=== PATIENT | female | born 1955 | race Caucasian/White ===

== ENCOUNTER 2025-04-03 08:33 | Outpatient (CLI) | payer MEDICARE, OTHER, SELFPAY ==
--- NOTE | ~2025-04-03 | CT_ITS ---
Procedure: CT LE RT wo con Ordering provider: Santosh Agosto MD History: . Preoperative Planning . Comparison: None. Technique: Thin slice axial CT of the No IV contrast was given. Sagittal and coronal reformatted imag es were also obtained and reviewed. The dose-length product was 1558.80 mGy-cm. Findings: BONES: No fracture or dislocation. JOINT SPACES: Severe narrowing of the medial compartment with marginal osteophytes and spiking of the tibial spines. Marginal osteophytes in the patella with some articular cystic changes. The right ank le and right hip are unremarkable. SOFT TISSUES: Edema in the lateral aspect of the distal right lower extremity. Minimal knee joint eff usion. Minimal edema anterior to the patellar tendon IMPRESSION: No fracture or dislocation. Severe osteoarthritic changes of the right knee. Reviewed, dictated and finalized at location A.
--- OUTSIDE RECORDS SUMMARY | 2025-04-03 08:55 | XMS_ITS | Clinical Summary ---
Author Organization [facility] Address [address] [place] [address] Care Team Providers Care Certified Activities Director Name Role Phone Unavailable Primary Care Provider Unavailabl e Source Comments [facility],non-owned Affiliates and Associated Physician Practices is amultiple site organization consisting of ambulatory clinics and hospital sitesin [place], [place], [place] and [place]. This disclosure is being madepursuant to the Care Everywhere program and may not contain all information available regarding this patient. 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 Gender Identity Not on file Sexual Orientation Not on file Plan of Treatment Health Maintenance Due Date Last Done Comments BONE DENSITY TESTING 1955 COLOGUARD (AGES 45-75) - COL ON CA SCREENING 1953 COLON MONITORING 1953 COLONOSCOPY - COLON CA SCREENING 1953 CT COLONOGRAPHY - COLON CA SCREENING 1953 Colorectal Cancer Screening 1953 FIT - COLON CA SCREENING 1953 FLEX SIG - COLON CA SCREENING 1953 LIPID TESTING 1953 MAMMOGRAM 1953 HEPATITIS C SCREENING 11/07/1971 DTAP/TDAP/TD VACCINES (1 - Tdap) 1972 PNEUMOCOCCAL VACCINE 50+ (1 of 1 - PCV) 2003 ZOSTER VACCINE (1 of 2) 2003 COVID-19 VACCINE ( - 2023-2 5 season) 2024 DEPRESSION SCREENING 11/29/2024 INFLUENZA VACCINE (Season Ended) 2025 Respiratory Syncytial Virus (RSV) Vaccine Pt: or over 60 yrs (1 - 1-dose 75+ series) 2028 HEPATITIS B VACCINE Aged Out No longe r eligible based on patient's age to complete this topic HIB VACCINE Aged Out No longer eligi ble based on patient's age to complete this topic HPV VACCINE Aged Out No longer eligi ble based on patient's age to complete this topic MENINGOCOCCAL (Group B) VACC INE SHARED DECISION-MAKING Aged Out No longer eligibl e based on patient's age to complete this topic MENINGOCOCCAL GROUPS A/C/Y/W VACCINE Aged Out No longer eligible b ased on patient's age to complete [place] [address] [employer]
--- OUTSIDE RECORDS SUMMARY | 2025-04-03 08:55 | XMS_ITS | Clinical Summary ---
Author Organization [facility] Address [address], [facility] [address] [place] [address] Phone Care Team Providers Care Splicer Operator Name Role Phone Bib Summers MD Primary Care Provider [phone] Calixto Alvarez MD Unavailable [phone] Allergies Active Allergy Reactions Criticality Noted Date Comments Sulfa Antibiotics Rash 06/21/2018 Medications aspirin EC 81 MG Tablet Delayed Response Take 81 mg by mouth three times a week. Active methotrexate 2.5 MG Tablet Take 5 mg by mouth twice a week. Active Misc Natural Products (OSTEO BI-FLEX JOINT SHIELD PO) Take 1 Tab by mouth daily. Active Multiple Vitamins-Minera ls (CENTRUM SILVER PO) Take 1 Tab by mouth daily. Active ONDANSETRON PO Take by mouth. Active Valsartan (DIOVAN PO) Take 1 Tab by mouth daily. Active folic acid (FOLVITE) 1 MG Tablet Take 1 mg by mouth daily. Active potassium chloride SA (KLORCON M) 10 MEQ Tablet Controlled Release Take 10 mEq by mouth daily. Active Probiotic Product (Nest Labs PO) Take 1 Tab by mouth daily. Active omeprazole (PRILOSEC) 40 MG CAPSULE DELAYED RELEASE Take 1 Cap by mouth daily. 90 Cap 3 8 Active Additional Information Patient not taking.Reported on 04/19/2024 ibuprofen (MOTRIN) 800 MG Tablet Take 1 Tablet by mouth every 8 hours. 270 Tablet 3 1 Active esomeprazole (NexIUM) 20 MG CAPSULE DELAYED RELEASEIndicati ons:Nodule of left lung,Rheumatoid arthritis in remission (HCC),Dyspnea on exertion Take 20 mg by mouth daily. Active Active Problems Problem Noted Date Diagnosed Date Nodule of left lung 04/19/2024 Rheumatoid arthritis in remission 04/19/2024 Dyspnea on exertion 04/19/2024 Immunizations Immunization Administration Dates Next Due Influenza, high-dose, trivalent, PF 08/02/2024 Family History Medical History Relation Name Comments Congestive Heart Failure Brother Diabetes Brother Congestive Heart Failure Father Dementia Father Diabetes Father Aneurysm Mother Coronary Artery Disease Mother Hypertension Mother Relation Name Status Comments Brother Father Alive Mother Social History Tobacco Use Types Packs/Day Years Used Date Smoking Tobacco: Never Smokeless Tobacco: Never Tobacco Cessation:Counseling Given: Not Answered Alcohol Use Standard Drinks/Week Comments Not Currently 0 (1 standard drink = 0.6 oz pur e alcohol) socially Comments No Sex and Gender Information Value Date Recorded Sex Assigned at Not on file Legal Sex Female 9:37 PM CDT Gender Identity Not on file Sexual Orientation Not on file 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 Not on file Not on file Last Filed Vital Signs Vital Sign Reading Time Taken Comments Blood Pressure 162/91 04/19/2024 9:23 AM CDT Pulse 80 04/19/2024 9:23 AM CDT Temperature 36.4 C (97.6 F) 04/19/2024 9:23 AM CDT Respiratory Rate 16 04/19/2024 9:23 AM CDT Oxygen Saturation 98% 04/19/2024 9:23 AM CDT Inhaled Oxygen Concentration - - Weight 94.6 kg (208 lb 9.6 oz) 04/19/2024 9:23 A M CDT Height 165.1 cm (5' 5 ) 04/19/2024 9:23 AM CDT Body Mass Index 34.71 04/19/2024 9:23 AM CDT Plan of Treatment Health Maintenance Due Date Last Done Comments Hepatitis C Virus (HCV) Screening 1953 Cologuard 2003 Immunochemical Fecal Occult Blood 2003 Respiratory Syncytial Virus (RSV) Immunization (Adult) (1 - Risk 60-74 years 1-dose series) 2013 DEXA Bone Density 06/18/2017 06/18/2015 SARS-COV-2 Immunization (3 - 2024-25 season) 2024 09/29/2021, 02/08/2021 Mammogram 05/06/2025 05/06/2024, 01/2022, 08/18/2021, Additional history exists Colonoscopy 05/18/2034 05/18/2024, 04/2018, 09/05/2012 Colorectal Cancer Screening 05/18/2034 05/18/2024, 04/2018, 09/05/2012 Pneumococcal Immunization (50+ years) Completed 08/11/2020, 08/11/2020, 06/14/2019 Pneumococcal Immunization Combined Discontinued 08/11/2020, 08/11/2020, 06/14/2019 Zoster Immunization Completed 05/07/2022, DTaP/Tdap/Td Immunization Discontinued 2021, 01/19/2011, 11/29/2010 TdaP Immunization Completed 09/02/2022, 01/19/2011 Influenza Immunization Completed 4, 09/05/2023, 09/02/2023, Additional history exists Hepatitis B Immunization Aged Out No longer eligible based on patient's age to complete this topic Human Papillomavirus (HPV) Immunization Aged Out No longer eligible based on patient's age to complete this topic Meningococcal Immunization (ACWY) Aged Out No longer eligible based on patient's age to complete this topic Rotavirus Immunization Aged Out No lo nger eligible based on patient's age to complete this topic Procedures Procedure Name Priority Date/Time Associated Diagnosis Comments RICKY SCREENING BILATERAL DIGITAL W CAD W PRESLEY Routine 10/01/2022 3:42 PM CDT Encounter for screening mammogram for malignant neoplasm of breast HM COLONOSCOPY Routine 09/05/2012 from Last 3 Months or Most Recently Relevant to Health Maintenance Results * RICKY SCREENING BILATERAL DIGITAL W CAD W PRESLEY (10/01/2022 3:42 PM CDT) Anatomical Region Laterality Modality breast Bilateral Mammography 10/01/2022 3:11 PM CDT Narrative 10/05/2022 9:56 AM ICE CREAM SHOP ASSOCIATE - RICKY SCREENING BILATERAL DIGITAL W CAD W PRESLEY BILATERAL DIGITAL SCREENING MAMMOGRAM 3D/2D WITH CAD WITH MEDIOLATERAL OBLIQUE CRANIOCAUDAL: 10/01/2022 The study was acquired using digital technology and interpreted from soft copy. Current study was also evaluated with ICAD version 7.2. 2D digital mammographic views, as well as 3D digital tomosynthesis were performed in the CC and MLO projections. CLINICAL: Routine screening. Patient has no complaints. No personal history of cancer. No family history of breast cancer. COMPARISONS: Comparison is made to exams dated: 08/18/2021, 07/02/2020 [facility], and 04/05/2019 [facility]. BREAST TISSUE:The tissue of both breasts is predominantly fatty. FINDINGS: There is a benign intramammary node in the left breast. No significant masses, calcifications, or other findings are seen in either breast. There has been no significant interval change. IMPRESSION: BI-RAD 2 BENIGN There is no mammographic evidence of malignancy. A 1 year screening mammogram is recommended. A letter will be sent to the patient with these results. The patient will be entered into a reminder system with a target due date of 1 year for her next screening exam. Electronically signed by: Akila cherry/michelle:10/02/2022 15:13:28 Memorial Counselor(s): RT Pantera(R)(M), [facility] letter sent: Normal Exam Reading location: [facility] BI-RADS: 2 Benign Procedure Note Akila Hernandez MD - 10/05/2022 - RICKY SCREENING BILATERAL DIGITAL W CAD W PRESLEY BILATERAL DIGITAL SCREENING MAMMOGRAM 3D/2D WITH CAD WITH MEDIOLATERAL OBLIQUE CRANIOCAUDAL: 10/01/2022 The study was acquired using digital technology and interpreted from soft copy. Current study was also evaluated with ICAD version 7.2. 2D digital mammographic views, as well as 3D digital tomosynthesis were performed in the CC and MLO projections. CLINICAL: Routine screening. Patient has no complaints. No personal history of cancer. No family history of breast cancer. COMPARISONS: Comparison is made to exams dated: 08/18/2021, 07/02/2020 [facility], and 04/05/2019 [facility]. BREAST TISSUE:The tissue of both breasts is predominantly fatty. FINDINGS: There is a benign intramammary node in the left breast. No significant masses, calcifications, or other findings are seen in either breast. There has been no significant interval change. IMPRESSION: BI-RAD 2 BENIGN There is no mammographic evidence of malignancy. A 1 year screening mammogram is recommended. A letter will be sent to the patient with these results. The patient will be entered into a reminder system with a target due date of 1 year for her next screening exam. Electronically signed by: Akila cherry/michelle:10/02/2022 15:13:28 Memorial Counselor(s): RT Pantera(R)(M), [facility] letter sent: Normal Exam Reading location: [facility] BI-RADS: 2 Benign us Bib Summers MD IMG MAMMO ORDERABLES Final Result * HM COLONOSCOPY (09/05/2012) us Victor M Castillo DO PROCEDURE/MINOR SURGICAL ORDERA BLES Final Result from Last 3 Months or Most Recently Relevant to Health Maintenance Insurance MEDICARE [employer] MEDICARE SUP Care Teams Splicer Operator Relationship Specialty Start Date End Date Bib Summers MD [address] [place] [address] PCP - General Internal Medicine 03/16/18 Calixto Alvarez MD [address] [place] [id number] Consulting Physician Medical Oncology 04/19/24
--- OUTSIDE RECORDS SUMMARY | 2025-04-03 08:55 | XMS_ITS | Encounter Summary ---
Author Organization [facility] Address [address] [place] [address] Phone Care Team Providers Care Pr Manager Name Role Phone Bib Summers MD Primary Care Provider [phone] Calixto Alvarez MD Unavailable Encounter Details Date Type Department Care Team (Late st Contact Info) Description 04/21/2024 Telephone [facility] Oncology Services [address] [place] [id number] Calixto Alvarez MD [address] [place] [address] Social History Tobacco Use Types Packs/Day Years Used Date Smoking Tobacco: Never Smokeless Tobacco: Never Alcohol Use Standard Drinks/Week Comments Not Currently 0 (1 standard drink = 0.6 oz pur e alcohol) socially Comments No Sex and Gender Information Value Date Recorded Sex Assigned at Not on file Legal Sex Female 9:37 PM CDT Gender Identity Not on file Sexual Orientation Not on file 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 This nodule is quite peripheral and not accessible via bronchoscopy. [facility] does not have navigational bronchoscopy. Have discussed with IR, this nodule is accessible via CT-guided biopsy. Patient requested this to be done at [facility]. Contacted patient's primary care physician Dr. Summers to request him to order the biopsy of the lung at [facility]. * Telephone Encounter - Jeana Emery - 04/21/2024 9:13 AM CDT The patient called to follow up on next steps after the completion of her PET scan on 04/12/24. She states she would like to discuss what is to be expected in regards to a having a PFT or lung bx. Patient requesting a touch base telephone call to map out the most effective steps in her care. [phone]. documented in this encounter Plan of Treatment Not on file documented as of this encounter Visit Diagnoses Not on filedocumented in this encounter Care Teams Pr Manager Relationship Specialty Start Date End Date Bib Summers MD [address] [address] PCP - General Internal Medicine 03/16/18 Calixto Alvarez MD [address] [facility] [place] [address] Consulting Physician Medical Oncology 04/19/24 documented as of this encounter
--- OUTSIDE RECORDS SUMMARY | 2025-04-03 08:56 | XMS_ITS | Clinical Summary ---
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
--- OUTSIDE RECORDS SUMMARY | 2025-04-03 08:56 | XMS_ITS | Encounter Summary ---
Author Organization [facility] Address [address] [place] [address] Phone Care Team Providers Care Ip/Mosaic Technician Name Role Phone Kristopher, Bib Lira MD Primary Care Provider [phone]- [phone] Donald Garnica MD Unavailable [phone] Victor M Castillo DO Unavailable [phone] Marquita Daniel MD Unavailable [phone] Jenna Barrera MD Unavailable [phone] Encounter Details Date Type Department Care Team (Late st Contact Info) Description 10/01/2022 Orders Only [facility] [address] [place] [address] Scanning, Provider Social History Tobacco Use Types Packs/Day Years Used Date Smoking Tobacco: Never Smokeless Tobacco: Never Alcohol Use Standard Drinks/Week Comments Yes 0 (1 standard drink = 0.6 oz pur e alcohol) AUDIT-C Answer Date Recorded Q1: How often do you have a drink containing alc ohol? 2-4 times a month 09/30/2022 Q2: How many drinks containi ng alcohol do you have on a typical day when you are drinking? 1 or 2 09/30/2022 Frequency of Binge Drinking Not on file 12/2021 PHQ-2 Answer Date Recorded PHQ-2 Total Score (If total score is 3 or more points, staff should administer the PHQ-9) 0 09/01/2022 Comments No Sex and Gender Information Value Date Recorded Sex Assigned at Not on file Legal Sex Female 11:31 AM SKIN TOGGLER Gender Identity Not on file Sexual Orientation Not on file documented as of this encounter Plan of Treatment Not on file documented as of this encounter Procedures Procedure Name Priority Date/Time Associated Diagnosis Comments SCAN - RADIOLOGY/IMAGING 10/01/2022 documented in this encounter Results * SCAN - RADIOLOGY/IMAGING (10/01/2022) Anatomical Region Laterality Modality Other us Provider Scanning Final Result documented in this encounter Visit Diagnoses Not on filedocumented in this encounter Care Teams Ip/Mosaic Technician Relationship Specialty Start Date End Date Bib Summers MD [address] [place] [address] PCP - General 02/26/17 Donald Garnica MD [address] [place] [address] Director Of Billing Obstetrics and Gynecology 02/24/18 Victor M Castillo DO [address] [place] [address] Consulting Physician Gastroenterology 02/24/18 Marquita Daniel MD [address] [place] [address] Referring Physician Rheumatology 02/24/18 Jenna Barrera MD [address] [place], [place] [id number] Consulting Physician Critical Care Med 02/25/21 documented as of this encounter
--- OUTSIDE RECORDS SUMMARY | 2025-04-03 08:56 | XMS_ITS | Clinical Summary ---
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 Name Role Phone KristopherBib MD Primary Care Provider [phone] Donald Garnica MD Unavailable [phone] Victor M Castillo DO Unavailable [phone] Marquita Daniel MD Unavailable [phone] Jenna Barrera MD Unavailable [phone] Allergies Active Allergy Reactions Criticality Noted Date Comments Lisinopril Cough Low 06/19/2019 Sulfa (Sulfonamide Antibiotics) Rash Medium 05/30 Sulfasalazine Rash Medium 06/21/2018 Medications calcium carbonate (CALCIUM 600) 1,500 mg (600 mg of elemental calcium) tablet ONE DAILY 0 10/27/20 11 Active 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 [id number] (CENTRUM SILVER ULTRA WOMEN'S) tablet ONE DAILY 0 10/27/20 11 Active glucosamine-D3 -Boswellia serr (OSTEO BI-FLEX, 5-LOXIN,) 1,500-400-100 mg-unit-mg tablet once daily 0 12/08/[address] (NexIUM) 20 mg packet Take 20 mg by mouth daily as needed Active golimumab (SIMPONI ARIA) 12.5 mg/mL solutionIndica tions:Rheumato id Arthritis every 8 (eight) weeks Active furosemide (LASIX) 20 mg tablet Take 1 tablet (20 mg total) by mouth daily 90 tablet 3 09/10/20 23 Active Additional Information Patient taking differently:20 mg oral Daily,Takes prn, Reported on 04/02/2025 losartan (COZAAR) 50 mg tablet Take 1 tablet (50 mg total) by mouth daily 90 tablet 3 09/11/20 24 Active meloxicam (MOBIC) 7.5 mg tabletIndicati ons:Osteoarthr itis,Rheumatoi d Arthritis Take 1 po every day 90 tablet 3 09/11/20 24 Active ibuprofen (ADVIL,MOTRIN) 800 mg tablet Take 1 tablet (800 mg total) by mouth 3 (three) times a day as needed 12/14/19 25 Active potassium chloride ER (KLOR-CON) 10 mEq CR tablet Take 1 tablet by mouth once daily 90 tablet 03/13/20 25 Active albuterol HFA (Proventil HFA) 90 mcg/actuation inhaler Inhale 2 puffs every 4 (four) hours as needed for wheezing or shortness of breath 3 each 1 03/24/20 24 025 Discontinued methotrexate 2.5 mg tabletIndicati ons:autoimmune disease Take 2 tablets (5 mg total) by mouth every 7 days 24 tablet 1 07/11/20 24 025 Discontinued folic acid (FOLVITE) 1 mg tablet Take 2 tablets by mouth once daily 180 tablet 09/12/20 24 025 Discontinued potassium chloride ER 10 mEq CR tablet Take 1 tablet/capsule (10 mEq total) by mouth daily 90 tablet 12/14/19 25 025 Discontinued Active Problems Problem Noted Date Diagnosed Date Left upper lobe pulmonary nodule 05/11/2024 Abnormal computed tomography angiography (CTA) of abdomen and pelvis 05/03/2024 Malignant neoplasm of lung 05/03/2024 Abnormal findings on diagnos tic imaging of other parts of digestive tract 05/03/[address] of the chest 04/07/2024 Assessment & Plan (04/07/2024 6:56 PM CDT): I reviewed th ct of the chest with the patient she understands Will arrange PET scan for abnormal ct of the chest at [facility] Also I referred her to dr rodríguez as a f/u For her coronary calcification will refer her to cardiology for further work up MUNGUIA (dyspnea on exertion) 03/24/2024 Assessment & Plan (04/02/2025 6:32 PM CDT): WITH INITIALLY AN 2 D ECHO NEG NL EWF CXR WITH LUNG LESION S/P CT OF THE CHEST WITH NEG BIOPSY Assessment & Plan (03/24/2024 6:46 PM CDT): Patient thinks its secondarily to her weight that has gone up / she denies any chest pain she does has a f/h of heart disease, discussed start with a cxr today /The current medical regimen is effective; continue present plan and medications. Inhalers but use it timely if neg will arrange a 2 d echo to look at LVEF plus heart valves this was discussed with the patient Chronic kidney disease (CKD) stage G2/A1, mildly decreased glomerular filtration rate (GFR) between 60-89 mL/min/1.73 square meter and albuminuria creatinine ratio less than 30 mg/g 03/22/2024 Encounter for Medicare annual wellness exam 08/29 Assessment & Plan (09/12/2024 8:03 AM CDT): 1, immunizations were reviewed 2. Eye exam and dental uptodate 3. Mammogram and colonscopy uptodate . 4. Essential HTN goal bp is 130/80 or under 5. Seronegative RA follow up with rheumatology 6./abnormal ct of the chest with a neg biopsy for malignant rpt ct showing stability of the lung nodule . High risk medication use 09/15/2023 Cough 07/09/2022 Assessment & Plan (07/09/2022 1:41 PM CDT): See plan for URI above. Upper respiratory tract infection 07/09/2022 Assessment & Plan (07/09/2022 1:45 PM CDT): Presents c/o non-productive cough, indigestion, and epigastric pain/pressure. Slight wheezing noted on exam. Tested negative for COVID/Flu in office today. Discussed with patient bronchitis with a complicating factor of GERD.Will order CXR to r/o acute cardiopulmonary process. Rxd Tessalon perles as needed for cough and good hydration. Educated on low acid diet. Continue Nexium daily. Keep follow up with Dr. Cruz in August or call sooner if needed. Seronegative rheumatoid arthritis 10/01/2018 Assessment & Plan (04/02/2025 6:32 PM CDT): CHRONIC AND STABLE ON SIMPONI EVERY 8 WEEKS Assessment & Plan (03/10/2023 12:58 PM CDT): Recent increase in pain levels may represent interchangeable subcu in IV Simponi but will await response to her infusion today. Monitoring laboratories are obtained and will plan to continue her current regimen Simponi plus methotrexate unless this is a persistent issue. Assessment & Plan (07/24/2020 1:37 PM CDT): Clinically she is doing well on her current regimen of Simponi plus methotrexate. Monitoring laboratories are ordered today. We will arrange for her to have infusions in [place] and right orders if we are not able to arrange for subcutaneous Simponi. She will follow up with me in 6 months. Assessment & Plan (02/07/2020 1:02 PM CDT): Clinically she does have some increased symptoms but she is at the arvind of her therapy. Would like to see her back after she has completed 2 infusions. She does not feel that she needs additional therapy at this time for pain control. We will check monitoring laboratories on her methotrexate which is 7.5 mg weekly. She will follow up with me in 4 months. We discussed risk of baker virus given her current regimen in the importance of continuing regular therapy. 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 We discussed the need to hold any subcutaneous injections if she developed an infection and I outlined that her for subcutaneous injection will be given at a 6 week interval from her last IV infusion and she will then take it every 4 weeks with a 4 week interval before she begins her maintenance IV infusions. We will obtain monitoring laboratories today on her IV Simponi. Assessment & Plan (08/23/2019 5:45 PM CDT): We had a lengthy discussion about options of care given her issues with MTX and hydroxychloroquine as well as it is not been effective and her radiographs demonstrating progressive disease. I recommend consideration for a TNF inhibitor and we discussed potential adverse effects of non melanoma skin cancer, increased risk of opportunistic infections, rare risk of transaminitis. We also discussed potential use of leflunomide but given her severe nausea with methotrexate she is very concerned about the GI side effects. She had a negative latent tuberculosis test 12-1/2 months ago and we will repeat this but initiate the process for IV Simponi. She will discontinue methotrexate at this time given her GI intolerance and we will check monitoring laboratories. Assessment & Plan (02/17/2019 3:49 PM CDT): She continues to have some inflammatory symptoms but has been intolerant of higher doses of methotrexate and she would prefer to avoid a biologic this time of possible. I would suggest we cross over to subcutaneous methotrexate at 0.4 mg initially to see if this is better tolerated and if it is, I would increase the dose to 0.6 after 1 month of therapy. She will continue her folic acid but if she continues to have central nervous symptoms after taking methotrexate, I would cross over to leucovorin. I had a lengthy discussion with her about preferred forms of exercise and I have strongly encouraged her to begin a graded conditioning program. Assessment & Plan (10/01/2018 7:25 AM CDT): Clinically she continues to have active disease and I recommended occupational therapy consultation to assess her hand splints. We discuss use of a biologic and she has had screening laboratories and these are all acceptable. I would recommend that we add a TNF inhibitor such as Humira to her regimen. She will be receiving new insurance within the next month and would like to have her benefits assessed with this rather than making the change at this time. She will contact us when she has her new insurance card. We will obtain monitoring laboratories today. We discussed risks and benefits of therapy including increased risk of skin cancer, opportunistic infections and less common side effects of autoimmune hepatitis or rash. YVONNE on CPAP 09/15/2018 Gastroesophageal reflux disease without esophagi tis 02/24/2018 Assessment & Plan (07/09/2022 1:47 PM CDT): Presents with cough, indigestion, and epigastric pain. Educated that cough can worsen GERD symptoms or vice versa. She feels the Nexium has been working for her, will continue daily. Educated on low acid diet. Increase water. Call with any changes/concerns. 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 Pure hypercholesterolemia 04/14/2014 Overview (03/04/2017): PURE HYPERCHOLESTEROLEM Assessment & Plan (04/02/2025 6:32 PM CDT): FLP AND LDL WERE REVIEWED GOAL LDL IS UNDER 100 Family history of ischemic heart disease 014 Overview (03/05/2017): FAM HX-ISCHEM HEART DIS Benign hypertension 04/14/2014 Overview (03/05/2017): BENIGN HYPERTENSION Generalized osteoarthritis 02/25/2011 Overview (03/06/2017): General Osteoarthrosis Resolved Problems Problem Noted Date Diagnosed Date Resolved Date Chronic kidney disease, stage III (moderate) 2 03/22/2024 Chronic kidney disease (CKD) stage G3a/A1, moderately decreased glomerular filtration rate (GFR) between 45-59 mL/min/1.73 square meter and albuminuria creatinine ratio less than 30 mg/g 03/05/2022 03/22/2024 Chronic kidney disease (CKD) stage G3b/A1, moderately decreased glomerular filtration rate (GFR) between 30-44 mL/min/1.73 square meter and albuminuria creatinine ratio less than 30 mg/g 03/05/2022 03/22/2024 Encounters Date Type Department Care Team Description 04/02/2025 11:00 AM CDT Office Visit [facility] [address] [place] [address] Bib Summers MD Pure hypercholesterolemia (Primary Dx); MUNGUIA (dyspnea on exertion); Seronegative rheumatoid arthritis (HCC) 03/29/2025 Telephone [facility] [place] [address] [place] [address] Jackelyn Jacome LPN 03/22/2025 Telephone [facility] Pulmonary at [address] [place] [address] Janelle Tellez LPN 03/21/2025 11:27 AM CDT - 03/21/2025 11:59 PM CDT Hospital Encounter [facility] Non-invasive Cardiac Diagnostic Testing [address] [place] [address] Dyspnea on exertion Discharge Disposition: Discharge to home or self care 03/20/2025 Telephone [facility] [address] [place] [address] Bib Summers MD 03/14/2025 1:29 PM CDT - 03/14/2025 11:59 PM CDT Hospital Encounter [facility] [address] [place] [address] Seronegative rheumatoid arthritis (HCC) Discharge Disposition: Discharge to home or self care 03/14/2025 11:00 AM CDT Infusion [facility] Infusion Therapy [address] [place] [id number] Seronegative rheumatoid arthritis (HCC) (Primary Dx) 03/12/2025 10:30 AM CDT Office Visit [facility] Pulmonary at [address] [place] [address] Timur Kahn MD Dyspnea on exertion (Primary Dx); Pulmonary nodule, left; Rheumatoid arthritis with negative rheumatoid factor, involving unspecified site (HCC) 01/29/2025 Telephone [facility] [address] [place] [address] [address] [place] [phone] Donald Garnica MD Diflucan pharmacy correction 01/29/2025 Telephone [facility] [address] [facility] [address] [place] [phone] 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, 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 Diflucan from Last 3 Months Immunizations Immunization Administration Dates Next Due Influenza, Quadrivalent, Hig h Dose, Preservative Free, Intrr 09/05/2023,08/31/2022,08/22/2021,08/11 Influenza, Split 09/18/2010,11/29/2009 Influenza, Trivalent, High D ose, Split, Preservative Free, Intramuscular 08/02/2024,08/11/2020,08/08/2019 Influenza, Trivalent, IM (MDV) 08/16/2012 Influenza, Trivalent, Preser vative Free, Intramuscular 08/28/2011 Influenza, Unspecified 08/02/2024,2021,08/25/2021,08/08 [employer] ([employer]) SARS-CoV-2 Vaccination 02/08/2021 Pfizer SARS-CoV-2 Monovalent Vaccination (12+ Yrs) PURPLE 09/29/2021 Pneumococcal Conjugate PCV 13 06/14/2019 Pneumococcal Conjugate, Unspecified 08/11/2020 Pneumococcal Polysaccharide PPV23 08/11/2020 TD Preservative Free 11/29/2010 Tdap 09/02/2022,01/19/2011 ZOSTER Recombinant 05/07/2022,02/20/2022 Surgical History Surgery Date Site/Laterality Comments OTHER SURGICAL HISTORY appendicitis: Appendectomy HYSTERECTOMY Hysterectomy HYSTERECTOMY 11/29/1980 - 11/28/1981 Hysterectomy KNEE ARTHROPLASTY 11/29/2008 - 11/28/2009 Knee replacement APPENDECTOMY 11/29/1969 - 11/28/1970 Appendectomy APPENDECTOMY Appendectomy OTHER SURGICAL HISTORY 11/29/1980 - 11/28/1981 Hysterectomy with partial oophorectomy KNEE ARTHROPLASTY 11/29/2007 - 11/28/2008 Left knee replacement KNEE ARTHROPLASTY L knee replacement OTHER SURGICAL HISTORY patial hysterectomy APPENDECTOMY appendectomy COLONOSCOPY 06/29/2018 - 07/29/2018 JOINT REPLACEMENT Medical History Medical History Date Comments Hx Other Medical appendicitis Arthritis Arthritis Hypertension Hypertension Hx Other Medical 2000 Degenerative ar thrits Rheumatoid arthritis (HCC) PONV (postoperative nausea and vomiting) Sleep apnea Family History Medical History Relation Name Comments Coronary artery disease Brother Lincoln nary artery disease, premature; Diabetes type II Brother HTN Brother Coronary artery disease Father Lincoln nary artery disease; Diabetes Father Diabetes mellit us; Diabetes type II Father Diabetes -T ype II; /Diabetes -Type 2; Hypertension Father Hypertension; Cancer Maternal Grandfather Cancer; Other Maternal Grandfather Unknown ; Cause of : Unknown Other Maternal Grandmother Unknown ; Abdominal Aortic Aneurysm Mother AA A; Cause of : AAA Coronary artery disease Mother Lincoln nary artery disease; Hypertension Mother Hypertension; Diabetes Other 1 Family history of Diabetes mellitus; Coronary artery disease Other 2 Fami ly history of Coronary artery disease; Sleep apnea Other 3 Family history of Sleep apnea; Other Paternal Grandfather Unknown ; Cause of : Unknown Other Paternal Grandmother Unknown ; Cause of : Unknown Relation Name Status Comments Brother Father Maternal Grandfather Maternal Grandmother Mother Other 1 Other 2 Other 3 Paternal Grandfather Paternal Grandmother Social History Tobacco Use Types Packs/Day Years Used Date Smoking Tobacco: Never Smokeless Tobacco: Never Tobacco Cessation:Counseling Given: Not Answered Alcohol Use Standard Drinks/Week Comments Yes 0 (1 standard drink = 0.6 oz pur e alcohol) AUDIT-C Answer Date Recorded Q1: How often do you have a drink containing alc ohol? Monthly or less 06/02/2024 Q2: How many drinks containi ng alcohol do you have on a typical day when you are drinking? 1 or 2 06/02/2024 Q3: How often do you have si x or more drinks on one occasion? Never 06/02/2024 PHQ-2 Answer Date Recorded PHQ-2 Total Score (If total score is 3 or more points, staff should administer the PHQ-9) 0 04/02/2025 Personal Safety Answer Date Recorded Have you ever been in or are you currently in a harmful physical or emotional relationship or is someone making you feel afraid or unsafe? 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 Gender Identity Not on file Sexual Orientation Not on file Obstetrics History Para Term AB IAB SAB Ectopic Multiple Livin g Live Births 3 3 3 3 3 Date Outcome GA Total Labor Labor/2nd/3rd Weight Sex Type Anes PTL Kat A1 A5 Name Clin Term Living Term Living Term Living Last Filed Vital Signs Vital Sign Reading Time Taken Comments Blood Pressure 132/88 04/02/2025 10:47 AM CDT Pulse 72 04/02/2025 10:47 AM CDT Temperature 36.8 C (98.2 F) 04/02/2025 10:47 AM CDT Respiratory Rate 16 04/02/2025 10:4 7 AM CDT Oxygen Saturation 98% 03/12/2025 10: 36 AM CDT Inhaled Oxygen Concentration - - Weight 90.2 kg (198 lb 12.8 oz) 025 10:47 AM CDT Height 164.1 cm (5' 4.6 ) 04/02/2025 10 :47 AM CDT Body Mass Index 33.49 04/02/2025 10:47 AM CDT Plan of Treatment Health Maintenance Due Date Last Done Comments Hepatitis B Screening 1973 Osteoporosis Screening-Bone Density Scan 06/18/2017 06/18/2015, 06/18/2015 Covid-19 Vaccine (2023- 5 season) 2024 09/29/2021, 02/08/2021 Breast Cancer Screening-Mammogram 05/06/2025 05/06/2024, 05/06/2024, 10/01/2022, Additional history exists Fall Risk Assessment 06/02/2025 06/02/2024, 09/02/2021, 08/26/2020, Additional history exists Well Visit 65+ 09/11/2025 09/11/2024, 08/29, 09/02/2021, Additional history exists Depression Screening 04/02/2026 04/02/2025, 09/11/2024, 08/03/2023, Additional history exists Colon Cancer Screening-Colonoscopy 05/18/2031 05/18/2024 DTaP/Tdap/Td Vaccine (3 - Td or Tdap) 09/02/2032 09/02/2022, 01/19/2011, 11/29/2010 Hepatitis C Screening Completed 06/30/2018 Pneumococcal vaccine 65+ Completed 020, 08/11/2020, 06/14/2019 Zoster Vaccine Completed 05/07/2022, 02/20/2022 Colon Cancer Screening-CT Colonography Discontinued 05/18/2024 Colon Cancer Screening-DNA Stool Discontinued 05/18/20 Colon Cancer Screening-FIT Discontinued 05/18/2024 Colon Cancer Screening-Sigmoidoscopy Discontinued 05/18/2024 Influenza Vaccine Completed 08/02/2024, , 09/05/2023, Additional history exists Procedures Procedure Name Priority Date/Time Associated Diagnosis Comments LIPID PANEL Routine 03/29/2025 7:52 AM CDT Pure hypercholesterolemia TRANSTHORACIC ECHO (TTE) COMPLETE W DOPPLER/CF WO CONTRAST Routine 03/21/2025 12:23 PM CDT Dyspnea on exertion EGFR Routine 03/14/2025 1:33 PM CDT Seronegative rheumatoid arthritis (HCC) DIFFERENTIAL AUTO Routine 03/14/2025 1:33 PM CDT Seronegative rheumatoid arthritis (HCC) CBC WITH AUTO DIFFERENTIAL Routine 03/14/2025 1:33 PM CDT Seronegative rheumatoid arthritis (HCC) COMPREHENSIVE METABOLIC PANEL Routine 03/14/2025 1:33 PM CDT Seronegative rheumatoid arthritis (HCC) CRP (ACUTE PHASE) Routine 03/14/2025 1:33 PM CDT Seronegative rheumatoid arthritis (HCC) ERYTHROCYTE SEDIMENTATION RATE Routine 03/14/2025 1:33 PM CDT Seronegative rheumatoid arthritis (HCC) COLONOSCOPY 05/18/2024 11:13 AM CDT SCREENING MAMMOGRAM BILATERAL W DONY Schedule Routine, Read Routine (OP Routine) 05/06/2024 9:13 AM CDT Screening mammogram, encounter for HEPATITIS C ANTIBODY Routine 06/30/2018 1:03 PM CDT DEXA AXIAL SKELETON BONE DENSITY 1 OR MORE SITES Routine 06/18/2015 1:00 PM CDT from Last 3 Months or Most Recently Relevant to Health Maintenance Results * (ABNORMAL) Lipid panel (03/29/2025 7:52 AM CDT) Cholesterol 188 <200 mg/dL [facility] HDL 62 > OR = 50 mg/dL [facility] Triglycerides 68 <150 mg/dL [facility] LDL 111(H) mg/dL (calc) [facility] Comment: Reference range: <100 Desirable range <100 mg/dL for primary prevention; <70 mg/dL for patients with CHD or diabetic patients with > or = 2 CHD risk factors. LDL-C is now calculated using the Christoph calculation, which is a validated novel method providing better accuracy than the Friedewald equation in the estimation of LDL-C. Maximino SS et al. TINO. 2013;310(19): 7925-8971 (http://education.TabSprint/faq/OAR070) Chol/HDL ratio 3.0 <5.0 (calc) [facility] Non-HDL, (LDL+VLDL) 126 <130 mg/dL (calc) [facility] Comment: For patients with diabetes plus 1 major ASCVD risk factor, treating to a non-HDL-C goal of <100 mg/dL (LDL-C of <70 mg/dL) is considered a therapeutic option. Blood 03/29/2025 7:52 AM CDT 03/29/2025 7:52 AM CDT Narrative [facility] - 03/30/2025 3:00 AM CDT FASTING:YES FASTING: YES Bib Summers MD LAB BLOOD ORDERABLES Final Result [facility] [address] [place] [address] * TRANSTHORACIC ECHO (TTE) COMPLETE W DOPPLER/CF WO CONTRAST (03/21/2025 12:23 PM CDT) Anatomical Region Laterality Modality Ultrasound 03/21/2025 11:3 6 AM CDT Narrative 03/21/2025 1:04 [place] [address] Echocardiogram Report Patient Name: JUAN RAMON KC E : 1955 Study Date: 03/21/2025 11:36:50 AM Gender: F Tech: Ref Provider: TIMUR KAHN Height(Cm): 164 BSA: 2.04 Weight(Kg): 91 Heart Rate: 76 BP: 174/85 Quality: Good Order Provider: TIMUR KAHN PROCEDURES: Echocardiographic Report: Transthoracic echocardiogram with complete 2D, M-Mode, and color Doppler examination. INDICATIONS: R06.09 Other forms of dyspnea. MEASUREMENTS: 2D/MM Value Range Doppler Value Range EF Teich 2D 57.1 percent [ 54.0 - 74.0 ] EDY Vmax 2.51 cm2 EF Mod BP 63 % [ 54 - 74 ] AV Mean PG 6 mmHg LVIDd 2D 4.70 cm [ 3.80 - 5.20 ] AV Peak Markel 1.29 m/s [ 1.00 - 1.70 ] LVIDs 2D 3.29 cm [ 2.20 - 3.50 ] AV VTI 31.39 cm LVPWd 2D 0.78 cm [ 0.60 - 0.90 ] LVOT Diam 1.98 cm IVSd 2D 0.80 cm [ 0.60 - 0.90 ] LVOT Peak Markel 1.05 m/s [ 0.70 - 1.10 ] LA Dimension 2D 3.45 cm [ 2.70 - 3.80 ] LVOT VTI 23.95 cm LA Dimension MM 3.71 cm [ 2.70 - 3.80 ] SI LVOT 37.3 ml/m2 [ >= 35.0 ] AoR Diam 2D 3.72 cm [ 2.70 - 3.70 ] MV E Peak Markel 0.88 m/s [ 0.60 - 1.30 ] AoR Diam MM 3.37 cm [ 2.70 - 3.70 ] MV A Peak Amrkel 1.11 m/s [ 1.00 - 1.20 ] ACS MM 1.41 cm MV Mean PG 2 mmHg MV Decel Time 526 msec [ 104 - 258 ] PV Peak Markel 0.86 m/s [ 0.40 - 0.80 ] E` 0.07 m/s E/E` 13.07 2D/MM Value Range Doppler Value Range - FINDINGS: Atrial Septum: Normal atrial septum. Left Ventricle: Normal left ventricular size. Normal left ventricular systolic function with no focal wall motion abnormalities. Normal left ventricular wall thickness. Impaired diastolic relaxation Grade I. Ejection fraction is measured at 63 %. Left Atrium: The left atrium is normal in size. Right Ventricle: Normal right ventricular size. Normal right ventricular systolic function. Right Atrium: The right atrium is normal in size. Aortic Valve: Trileaflet aortic valve. Aortic cusps appear mildly calcified. No evidence of hemodynamically significant aortic stenosis by Doppler. No aortic regurgitation. Mitral Valve: Normal structure of the mitral valve. Trivial regurgitation of the mitral valve. Pulmonic Valve: Normal structure of the pulmonic valve. Trivial regurgitation in the pulmonic valve. Tricuspid Valve: Normal structure of the tricuspid valve. No evidence of tricuspid regurgitation. Pericardium: Normal pericardium with no significant pericardial effusion. Aorta: Aortic root is mildly dilated at 3.7 cm. IVC: Normal size and normal respiratory collapse consistent with normal right atrial pressure (<5 mmHg). CONCLUSIONS: Normal left ventricular size. Normal left ventricular systolic function with no focal wall motion abnormalities. Normal left ventricular wall thickness. Impaired diastolic relaxation Grade I. Ejection fraction is measured at 63 %. Normal right ventricular size. Normal right ventricular systolic function. Normal structure of the mitral valve. Trivial regurgitation of the mitral valve. Trileaflet aortic valve. Aortic cusps appear mildly calcified. No evidence of hemodynamically significant aortic stenosis by Doppler. No aortic regurgitation. Aortic root is mildly dilated at 3.7 cm. Electronically Signed By: Cande Shaffer DO, AMY, DIANA ARGUELLO 03/21/2025 1:03:27 PM CDT Procedure Note Cande Shaffer DO - 03/21/2025 [place] [address] Echocardiogram Report Patient Name: PRINCESSJUAN RAMON ESPINOZA E : 1955 Study Date: 03/21/2025 11:36:50 AM Gender: F Tech: Ref Provider: TIMUR KAHN Height(Cm): 164 BSA: 2.04 Weight(Kg): 91 Heart Rate: 76 BP: 174/85 Quality: Good Order Provider: TIMUR KAHN PROCEDURES: Echocardiographic Report: Transthoracic echocardiogram with complete 2D, M-Mode, and color Dopplerexamination. INDICATIONS: R06.09 Other forms of dyspnea. MEASUREMENTS: 2D/MM Value Range DopplerValue Range EF Teich 2D 57.1 percent [ 54.0 - 74.0 ] EDY Vmax2.51 cm2 EF Mod BP 63 % [ 54 - 74 ] AV Mean PG 6mmHg LVIDd 2D 4.70 cm [ 3.80 - 5.20 ] AV Peak Vel1.29 m/s [ 1.00 - 1.70 ] LVIDs 2D 3.29 cm [ 2.20 - 3.50 ] AV VTI31.39 cm LVPWd 2D 0.78 cm [ 0.60 - 0.90 ] LVOT Diam1.98 cm IVSd 2D 0.80 cm [ 0.60 - 0.90 ] LVOT Peak Vel1.05 m/s [ 0.70 - 1.10 ] LA Dimension 2D 3.45 cm [ 2.70 - 3.80 ] LVOT VTI23.95 cm LA Dimension MM 3.71 cm [ 2.70 - 3.80 ] SI LVOT37.3 ml/m2 [ >= 35.0 ] AoR Diam 2D 3.72 cm [ 2.70 - 3.70 ] MV E Peak Vel0.88 m/s [ 0.60 - 1.30 ] AoR Diam MM 3.37 cm [ 2.70 - 3.70 ] MV A Peak Vel1.11 m/s [ 1.00 - 1.20 ] ACS MM 1.41 cm MV Mean PG 2mmHg MV Decel Time 526 msec [ 104 - 258 ] PV Peak Markel 0.86 m/s [ 0.40 - 0.80 ] E` 0.07 m/s E/E` 13.07 2D/MM Value Range DopplerValue Range - FINDINGS: Atrial Septum: Normal atrial septum. Left Ventricle: Normal left ventricular size. Normal left ventricular systolic functionwith no focal wall motion abnormalities. Normal left ventricular wall thickness.Impaired diastolic relaxation Grade I. Ejection fraction is measured at 63 %. Left Atrium: The left atrium is normal in size. Right Ventricle: Normal right ventricular size. Normal right ventricular systolicfunction. Right Atrium: The right atrium is normal in size. Aortic Valve: Trileaflet aortic valve. Aortic cusps appear mildly calcified. No evidenceof hemodynamically significant aortic stenosis by Doppler. No aorticregurgitation. Mitral Valve: Normal structure of the mitral valve. Trivial regurgitation of the mitralvalve. Pulmonic Valve: Normal structure of the pulmonic valve. Trivial regurgitation in thepulmonic valve. Tricuspid Valve: Normal structure of the tricuspid valve. No evidence of tricuspidregurgitation. Pericardium: Normal pericardium with no significant pericardial effusion. Aorta: Aortic root is mildly dilated at 3.7 cm. IVC: Normal size and normal respiratory collapse consistent with normal rightatrial pressure (<5 mmHg). CONCLUSIONS: Normal left ventricular size. Normal left ventricular systolic functionwith no focal wall motion abnormalities. Normal left ventricular wall thickness.Impaired diastolic relaxation Grade I. Ejection fraction is measured at 63 %. Normal right ventricular size. Normal right ventricular systolicfunction. Normal structure of the mitral valve. Trivial regurgitation of the mitralvalve. Trileaflet aortic valve. Aortic cusps appear mildly calcified. No evidenceof hemodynamically significant aortic stenosis by Doppler. No aorticregurgitation. Aortic root is mildly dilated at 3.7 cm. Electronically Signed By: Cande Shaffer DO, AMY, SAUNDRA, DIANA 03/21/2025 1:03:27 PM CDT us Timur Kahn MD CV ECHO PROCEDURES Final Result * eGFR (03/14/2025 1:33 PM CDT) eGFR 74 >=60 mL/min/1. 73 m2 Comment: Interpretive Data Reference Interval Normal >/= 90 mL/min/1.73m2 Mildly decreased* 60 - 89 mL/min/1.73m2 Mildly to moderately decreased 45 - 59 mL/min/1.73m2 Moderately to severely decreased 30 - 44 mL/min/1.73m2 Severely decreased 15 - 29 mL/min/1.73m2 Kidney Failure < 15 mL/min/1.73m2 *Relative to young adult level Estimated glomerular filtration rate is determined by the 2020 CKD-EPI equation recommended by the National Kidney Foundation (A Unifying Approach to GFR Estimation: Recommendations of the NKF-ASK Task Force on Reassessing the Inclusion of Race in Diagnosing Kidney Disease, JASN 2020). The CKD-EPI equation should not be used for patients with unstable renal function and has not been validated in children and those over 70. Current interpretive data was last reviewed 2021. Blood 03/14/2025 1:33 PM CDT 03/14/2025 1:33 PM CDT us Marquita Daniel MD LAB BLOOD ORDERABLES Final R esult [facility] [address] [facility]. [place] [address] * Differential, auto (03/14/2025 1:33 PM CDT) Pathologist [facility] Neutrophil abs 1.76 1.50 - 6.50 K/cumm Imm gran abs 0.00 0.00 - 0.10 K/cumm [facility] Lymphocyte abs 2.34 0.80 - 3.30 K/cumm [facility] Monocyte abs 0.49 0.20 - 0.80 K/cumm [facility] Eosinophil abs 0.28 0.00 - 0.50 K/cumm [facility] Basophil abs 0.06 0.00 - 0.10 K/cumm [facility] Neutrophil pct 35.7 % [facility] Comment: Interpretive Data Percent cell count reference ranges are not reported, since discordance with absolute values may lead to misinterpretation of CBC data. Current Interpretive Data was last revised on 2018. Imm gran pct 0.0 % [facility] Comment: Interpretive Data Percent cell count reference ranges are not reported, since discordance with absolute values may lead to misinterpretation of CBC data. Current Interpretive Data was last revised on 2018. Lymphocyte pct 47.5 % [facility] Comment: Interpretive Data Percent cell count reference ranges are not reported, since discordance with absolute values may lead to misinterpretation of CBC data. Current Interpretive Data was last revised on 2018. Monocyte pct 9.9 % [facility] Comment: Interpretive Data Percent cell count reference ranges are not reported, since discordance with absolute values may lead to misinterpretation of CBC data. Current Interpretive Data was last revised on 2018. Eosinophil pct 5.7 % [facility] Comment: Interpretive Data Percent cell count reference ranges are not reported, since discordance with absolute values may lead to misinterpretation of CBC data. Current Interpretive Data was last revised on 2018. Basophil pct 1.2 % [facility] Comment: Interpretive Data Percent cell count reference ranges are not reported, since discordance with absolute values may lead to misinterpretation of CBC data. Current Interpretive Data was last revised on 2018. Blood 03/14/2025 1:33 PM CDT 03/14/2025 1:33 PM CDT us Marquita Daniel MD LAB BLOOD ORDERABLES Final R esult [facility] [address] [facility]. [place] [address] * (ABNORMAL) CBC with auto differential (03/14/2025 1:33 PM CDT) WBC 4.93 3.80 - 9.90 K/cumm Hgb 13.9 11.9 - 15.5 g/dL [facility] Hct 41.3 35.6 - 45.5 % [facility] Plt 213 150 - 400 K/cumm [facility] MPV 10.9 9.1 - 12.3 fL [facility] RBC 4.16 3.90 - 5.20 M/cumm [facility] MCV 99.3(H) 81.3 - 96.4 fL J[facility] FLORESW MCH 33.4(H) 27.1 - 33.3 pg JILL DE LEON MCHC 33.7 32.3 - 35.7 g/dL [facility] FLORESW RDW CV 13.0 11.1 - 14.9 % [facility] RDW SD 46.8 35.7 - 48.1 fL [facility] NRBC abs 0.00 0.00 - 0.01 K/cumm [facility] Blood 03/14/2025 1:33 PM CDT 03/14/2025 1:33 PM CDT Result [facility] Marquita Daniel MD LAB BLOOD ORDERABLES Final R esult Performing Organization Address [facility] Co de Phone Number JILL FLORESCH [address] [facility] [place] [address] * Erythrocyte sedimentation rate (03/14/2025 1:33 PM CDT) Pathologist [facility] Erythrocyte sedimentation rate 8 1 - 30 mm/hr Blood 03/14/2025 1:33 PM CDT 03/14/2025 1:33 PM CDT Result [facility] Marquita Daniel MD LAB BLOOD ORDERABLES Final R esult Performing Organization Address [facility] Co de Phone Number JILL [facility] [address] [facility] [place] [place] [address] * CRP (acute phase) (03/14/2025 1:33 PM CDT) Pathologist [facility] CRP <3.0 <=10.0 mg/L Blood 03/14/2025 1:33 PM CDT 03/14/2025 1:33 PM CDT Marquita Daniel MD LAB BLOOD ORDERABLES Final R esult [facility] [address] [facility]. [place] [address] * Comprehensive metabolic panel (03/14/2025 1:33 PM CDT) Sodium 141 135 - 145 mmol/L Potassium, pl 4.0 3.3 - 4.9 mmol/L [facility] Chloride 104 97 - 110 mmol/L [facility] CO2 29 22 - 32 mmol/L [facility] Anion gap 8 2 - 15 mmol/L [facility] BUN 19 6 - 25 mg/dL [facility] Creatinine 0.84 0.60 - 1.10 mg/dL [facility] Glucose 94 70 - 199 mg/dL [facility] Comment: Interpretive Data Fasting glucose >/= 126 mg/dl is diagnostic for diabetes. Fasting is defined as no caloric intake for at least 8 hours. Fasting glucose between 100 mg/dl to 125 mg/dl is diagnostic of prediabetes. In a patient with classic symptoms of hyperglycemia or hyperglycemic crisis, a random glucose >/= 200 mg/dl is diagnostic for diabetes. In the absence of unequivocal hyperglycemia, results should be confirmed by repeat testing. The classification and Diagnosis of Diabetes Diabetes Care 202; 46: S19-S40. Current interpretive data was last revised 2022. Calcium 9.4 8.5 - 10.3 mg/dL [facility] Bilirubin, total 0.4 0.1 - 1.2 mg/dL [facility] Protein, pl 6.8 6.5 - 8.5 g/dL [facility] Albumin 4.0 3.5 - 5.0 g/dL [facility] Alk phos 96 40 - 130 Units/L [facility] ALT 18 7 - 45 Units/L [facility] AST 24 10 - 45 Units/L [facility] Blood 03/14/2025 1:33 PM CDT 03/14/2025 1:33 PM CDT Marquita Daniel MD LAB BLOOD ORDERABLES Final R esult [facility] [address] [facility]. [place] [employer] [place] [address] * Colonoscopy (05/18/2024 11:13 AM CDT) Anatomical Region Laterality Modality Other Narrative Procedure Note Julissa Dior MD - 05/18/2024 11:13 AM CDT [facility] Patient Name: Juan Ramon Kc Procedure Date: 05/18/2024 11:13 AM Date of : 1955 Admit Type: Outpatient Age: 68 Gender: Female Attending MD: Julissa Dior M.D. Room: [facility] ENDOSCOPY ROOM 1 Note Status: Finalized Patient Profile: This is a 68 year old female. History of polyps. No family history of colon cancer. Procedure: Colonoscopy Indications: High risk colon cancer surveillance: Personalhistory of colonic polyps, Last colonoscopy: June 2018 Referring MD: Bib Summers M.D. Providers: Julissa Dior M.D. Impression: - The entire examined colon is normal overall. - Diverticulosis in the entire examined colon. - Internal hemorrhoids. - No specimens collected. Recommendation: - Repeat colonoscopy in 7 years for surveillance. - Continue present medications. Medicines: Monitored Anesthesia Care Complications: No immediate complications. Estimated Blood Loss: Estimated blood loss: none. Procedure: Pre-Anesthesia Assessment: - Prior to the procedure, a History and Physicalwas performed, and patient medications and allergieswere reviewed. The patient's tolerance of previous anesthesia was also reviewed. The risks andbenefits of the procedure and the sedation options and risks were discussed with the patient. All questions were answered, and informed consent was obtained. Prior Anticoagulants: The patient has taken noanticoagulant or antiplatelet agents. ASA Grade Assessment: Per anesthesia note and evaluation. After reviewing the risks and benefits, the patient was deemed in satisfactory condition to undergo the procedure. - Prior to the procedure, a History and Physicalwas performed, and patient medications and allergieswere reviewed. The patient's tolerance of previous anesthesia was also reviewed. The risks andbenefits of the procedure and the sedation options and risks were discussed with the patient. All questions were answered, and informed consent was obtained. Prior Anticoagulants: The patient has taken noanticoagulant or antiplatelet agents. ASA Grade Assessment: Per anesthesia note and evaluation. After reviewing the risks and benefits, the patient was deemed in satisfactory condition to undergo the procedure. The benefits, risks and alternatives of theprocedure and sedation were discussed and informed consentwas obtained. All questions were answered. Please referto the signed informed consent document in the medical record. The bowel preparation used was Miralax and bisacodyl tablets via split dose instruction. The scope was passed under direct vision. TheColonoscope [id number] was introduced through the anus and advanced to the the cecum, identified by appendiceal orifice and ileocecal valve. Thequality of the bowel preparation was good. Bowel prep was administered using a split dose. Findings: The perianal and digital rectal examinations were normal. The cecum appeared normal. The colon (entire examined portion) appeared normal. No polyps and no mass lesions noted. Scattered small-mouthed diverticula were found in the entire colon. Internal hemorrhoids were found during retroflexion. The hemorrhoids were small. Electronically signed by Julissa Dior M.D. Julissa Dior M.D. 05/18/2024 12:41:00 PM Number of Addenda: 0 Note Initiated On: 05/18/2024 11:13 AM Procedure Code(s): --- Professional --- G0105, Colorectal cancer screening; colonoscopy on individual at high risk Diagnosis Code(s): --- Professional --- Z86.010, Personal history of colonic polyps K64.8, Other hemorrhoids K57.30, Diverticulosis of large intestine without perforation orabscess without bleeding CPT copyright 2020 [place] [employer]. All rights reserved. The codes documented in this report are preliminary and upon primary care nurse reviewmay be revised to meet current compliance requirements. Recognized by the [place] [employer] for Gastrointestinal Endoscopy for promoting quality in endoscopy Julissa Dior MD ENDOSCOPY PROCEDURES Final Result * Screening Mammogram Bilateral W Dony (05/06/2024 9:13 AM CDT) Anatomical Region Laterality Modality Breast Bilateral Mammography 05/08/2024 2:41 PM CDT Impressions 05/08/2024 2:41 PM CDT There is no mammographic evidence of malignancy. A 1 year screening mammogram is recommended. BI-RADS: 1 - Negative. The patient has been or will be contacted. The patient will be entered into a reminder system with a target due date of 1 year for her next mammogram. Electronically signed by: Vernon Ayala M.D. Narrative 05/08/2024 2:41 PM CDT EXAMINATION: SCREENING MAMMOGRAM BILATERAL W DONY ORDERING HEALTHCARE PROVIDER: SELF SCREENING MAMMOGRAM HISTORY: Routine screening mammography. COMPARISON: 10/01/2022, 08/18/2021, 07/02/2020 - [facility]. 04/05/2019, 02/03/2018 - [facility]. TECHNIQUE: CC and MLO views of the bilateral breasts were obtained with digital technique using breast tomosynthesis with C view. Computer aided detection was utilized. FINDINGS: DENSITY: The tissue of the bilateral breasts is almost entirely fatty. BREASTS: There are no suspicious masses, suspicious calcifications, or other suspicious findings in either breast. There has been no suspicious interval change. us Self Screening Mammogram IMG MAMMO PROCEDURES Fi nal Result * Hepatitis C antibody (06/30/2018 1:03 PM CDT) Hep C Ab NON-REACTI VE NON-REACTI VE [facility] SIGNAL TO CUT-OFF 0.02 <1.00 [facility] 06/30/2018 1:03 PM CDT 06/30/2018 1:05 PM CDT Narrative Resulting Agency Comment Performing Organization Information: Site ID: [place] Name: [facility] Address: [address] [place] [address] [place] [address] Director: Colt Burnett D.O., MPH Marquita Daniel MD LAB MICROBIOLOGY - GENERAL O RDERABLES Final Result [facility] [place] * Dexa Axial Skeleton Bone Density 1 or 2 Site (06/18/2015 1:00 PM CDT) Anatomical Region Laterality Modality Body N/A Radiographic Bere ging 06/18/2015 1:00 PM CDT Narrative 06/18/2015 5:59 PM CDT DEXA Bone Density Axial Acc#: [id number] DATE OF EXAM: Jun 18 2015 CLINICAL HISTORY: 59 year old post menopausal female who states a history of hysterectomy, hormone and calcium therapy. RESULT: DXA LEFT HIP RESULTS SUMMARY: BMD (g/cm'b2) T-score Z-score Neck 0.786 -0.6 0.8 Total 0.912 -0.2 0.8 DXA L-SPINE RESULTS SUMMARY: BMD (g/cm'b2) T-score Z-score L1 0.879 -1.0 0.3 L2 0.914 -1.0 0.5 L3 1.064 -0.2 1.4 L4 1.021 -0.4 1.3 Total 0.974 -0.7 0.9 IMPRESSION: 1. BONE MINERAL DENSITY OF THE LUMBAR SPINE IS WITHIN NORMAL LIMITS. 2. BONE MINERAL DENSITY OF THE LEFT FEMORAL NECK IS WITHIN NORMAL LIMITS. COMMENT: W.H.O. defines the T-score of between -1 and -2.5 as osteopenia, the level at which there may be an increased risk of developing osteoporosis and fractures in the future. Osteoporosis is defined as T-score lower than -2.5 (significantly increased risk of fracture due to osteoporosis). T-score is a comparison to peak bone mineral density of young adult reference population. Z-score is a comparison to bone mineral density of sex and age group population. Interpreting Physician: DR ELIAS ALFARO M.D. Read on: Jun 18 2015 3:13P Transcribed by: clara On: Jun 18 2015 5:35P Approved Electronically by: DR ELIAS ALFARO M.D. on: Jun 18 2015 5:58P Attending: DONALD GARNICA Requesting: DR DONALD GARNICA Requesting Fax: -- Attending Fax: -- Attending ID: [id number] Requesting ID: [id number] Report To 1 ID: [id number] Report To 1 Name: DONALD GARNICA Report To 1 FAX: -- NextGen Order #: Procedure Note Provider, MD Chica - 03/28/2017 DEXA Bone Density Axial Acc#: [id number] DATE OF EXAM: Jun 18 2015 CLINICAL HISTORY: 59 year old post menopausal female who states a history of hysterectomy,hormone and calcium therapy. RESULT: DXA LEFT HIP RESULTS SUMMARY: BMD (g/cm'b2) T-score Z-score Neck 0.786 -0.6 0.8 Total 0.912 -0.20.8 DXA L-SPINE RESULTS SUMMARY: BMD (g/cm'b2) T-score Z-score L1 0.879 -1.0 0.3 L2 0.914 -1.0 0.5 L31.064 -0.2 1.4 L4 1.021 -0.4 1.3 Total 0.974 -0.7 0.9 IMPRESSION: 1. BONE MINERAL DENSITY OF THE LUMBAR SPINE IS WITHIN NORMAL LIMITS. 2. BONE MINERAL DENSITY OF THE LEFT FEMORAL NECK IS WITHIN NORMALLIMITS. COMMENT: W.H.O. defines the T-score of between -1 and -2.5 as osteopenia, thelevel at which there may be an increased risk of developing osteoporosisand fractures in the future. Osteoporosis is defined as T-score lowerthan -2.5 (significantly increased risk of fracture due to osteoporosis).T-score is a comparison to peak bone mineral density of young adultreference population. Z-score is a comparison to bone mineral density ofsex and age group population. Interpreting Physician: DR ELIAS ALFARO M.D. Read on: Jun 18 20153:13P Transcribed by: clara On: Jun 18 2015 5:35P Approved Electronically by: DOMINIC Herrera, DR GRIFFIN on: Jun 18 20155:58P Attending: DONALD GARNICA Requesting: DR DONALD GARNICA Requesting Fax: -- Attending Fax: -- Attending ID: [id number] Requesting ID: [id number] Report To 1 ID: [id number] Report To 1 Name: DONALD GARNICA Report To 1 FAX: -- NextGen Order #: Historical Provider MD ZEE DXA PROCEDURES Final Result from Last 3 Months or Most Recently Relevant to Health Maintenance Insurance [id number] (Work) [address] [address] [facility] MEDICARE [facility] Address: [address] [address] [place] [address] [employer] Advance Directives For more information, please contact: [phone] * Full Code (Latest Code Status on File) Date Activated Date Inactivated Comments 05/18/2024 10:55 AM 05/18/2024 5:25 PM * Full Code Date Activated Date Inactivated Comments 05/18/2024 10:55 AM 05/18/2024 10:55 AM Care Teams 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 [place] [address] Homemaking Rehabilitation Consultant Obstetrics and Gynecology 02/24/18 Victor M Castillo DO [address] [facility] [place] [address] Consulting Physician Gastroenterology 02/24/18 Marquita Daniel MD [address] [facility] [address] [place] [address] Referring Physician Rheumatology 02/24/18 Jenna Barrera MD [address] [facility] [address] [place] [address] Consulting Physician Critical Care Med 02/25/21
--- OUTSIDE RECORDS SUMMARY | 2025-04-03 08:56 | XMS_ITS ---
Author Organization [facility] Address [address] [place] [address] Care Team Providers Care Collar Baster Name Role Phone Bib Summers MD Primary Care Provider + [phone] Donald Garnica MD Unavailable [phone] Victor M Castillo DO Unavailable [phone] Marquita Daniel MD Unavailable [phone] Jenna Barrera MD Unavailable [phone] Active Problems Problem Noted Date Diagnosed Date Left upper lobe pulmonary nodule 05/11/2024 Abnormal computed tomography angiography (CTA) of abdomen and pelvis 05/03/2024 Malignant neoplasm of lung 05/03/2024 Abnormal findings on diagnos tic imaging of other parts of digestive tract 05/03/[address] of the chest 04/07/2024 Assessment & Plan (04/07/2024 6:56 PM CDT): I reviewed ct of the chest with the patient she understands Will arrange PET [facility] Also I referred her to dr rodríguez [...] therapy. 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 Other Current Plans GOLIMUMAB (SIMPONI ARIA) INFUSION (RHEUMATOLOGY)* Plan Start Date:09/06/2019 Plan Provider:Marquita Daniel MD Linked Problems Seronegative rheumatoid arth ritis (HCC) Treatment Medications golimumab (SIMPONI ARIA) Past Treatment and Therapy Plans No past plan information found. Lifetime Dose Tracking * Chemical Lifetime Dose Automatic Entry Manual Entr y DLP 489 mGycm 489 mGycm 0 mGycm Resolved Problems Problem Noted Date Diagnosed Date [...]
--- OUTSIDE RECORDS SUMMARY | 2025-04-03 08:56 | XMS_ITS | Referral Summary ---
Author Organization [facility] Address [address] [place] [address] Care Team Providers Care Supervisor Title Name Role Phone Bib Summers MD Primary Care Provider [phone] Donald Garnica MD Unavailable [phone] Victor M Castillo DO Unavailable [phone] Marquita Daniel MD Unavailable Jenna Barrera MD Unavailable [phone] Encounters Date Type Department Care Team Description 04/02/2025 11:00 AM CDT Office Visit [facility] [address] [place] [phone] Bib Summers MD Pure hypercholesterolemia (Primary Dx); MUNGUIA (dyspnea on exertion); Seronegative rheumatoid arthritis (HCC) 03/29/[address] [facility] Pulmonary at [address] [place] [phone] Jackelyn Jacome LPN 03/22/[address] [facility] Pulmonary at [address] [place] [phone] Janelle Tellez LPN 03/21/2025 11:27 AM CDT - 03/21/2025 11:59 PM CDT Hospital Encounter [facility] Non-invasive Cardiac Diagnostic Testing [address] [place] [address] Dyspnea on exertion Discharge Disposition: Discharge to home or self care 03/20/[address] [facility] [address] [place] [phone] Bib Summers MD 03/14/2025 1:29 PM CDT - 03/14/2025 11:59 PM CDT Hospital Encounter [facility] [address] [place] [address] Seronegative rheumatoid arthritis (HCC) Discharge Disposition: Discharge to home or self care 03/14/2025 11:00 AM CDT Infusion [facility] Infusion Therapy [address] [place] [phone] Seronegative rheumatoid arthritis (HCC) (Primary Dx) 03/12/2025 10:30 AM CDT Office Visit [facility] Pul[facility] at [place] [address] [facility] [address] [place] [phone] Timur Kahn MD Dyspnea on exertion (Primary Dx); Pulmonary nodule, left; Rheumatoid arthritis with negative rheumatoid factor, involving unspecified site (HCC) 01/29/2025 Telephone [facility] [address] [facility] [facility] [facility] [address] [place] [address] Donald Garnica MD Diflucan pharmacy correction 01/29/2025 Telephone [facility] [address] [facility] [facility] [address] [place] [phone] 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, SENIOR OCCUPATIONAL THERAPIST Diflucan from Last 3 Months Allergies Active Allergy Reactions Criticality Noted Date Comments Lisinopril Cough Low 06/19/2019 Sulfa (Sulfonamide Antibiotics) Rash Medium 05/30 Sulfasalazine Rash Medium 06/21/2018 Medications calcium carbonate (CALCIUM 600) 1,500 mg (600 mg of elemental calcium) tablet ONE DAILY 0 10/27/20 11 Active multivit-mica miner [id number] (CENTRUM SILVER ULTRA WOMEN'S) tablet ONE DAILY [...] for abnormal ct of the chest at [facility] Also I referred her to dr rodríguez [...] arrange for her to have infusions in [place] and right orders if we are not [...] therapy. 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): Clinically she has had a significant improvement [...] ratio less than 30 mg/g 03/05/2022 03/22/2024 Immunizations Immunization Administration Dates Next Due Influenza, Quadrivalent, Hig h Dose, Preservative Free, Intrr 09/05/2023,08/31/2022,08/22/2021,08/11 Influenza, Split 09/18/2010,11/29/2009 Influenza, Trivalent, High D ose, Split, Preservative Free, Intramuscular 08/02/2024,08/11/2020,08/08/2019 Influenza, Trivalent, IM (MDV) 08/16/2012 Influenza, Trivalent, Preser vative Free, Intramuscular 08/28/2011 Influenza, Unspecified 08/02/2024,2021,08/25/2021,08/08 [employer] (J&J) SARS-CoV-2 Vaccination 02/08/2021 Pfizer SARS-CoV-2 Monovalent Vaccination (12+ Yrs) PURPLE 09/29/2021 Pneumococcal Conjugate PCV 13 06/14/2019 Pneumococcal Conjugate, Unspecified 08/11/2020 Pneumococcal Polysaccharide PPV23 08/11/2020 TD Preservative Free 11/29/2010 Tdap 09/02/2022,01/19/2011 ZOSTER Recombinant 05/07/2022,02/20/2022 Social History Tobacco Use Types Packs/Day Years [...] on file 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 LDL-C is now calculated using the Maximino-Hugo calculation, which is a validated novel method providing better accuracy than the Friedewald equation in the estimation of LDL-C. Maximino SS et al. TINO. 2013;310(19): 0319-6874 (http://education.[employer]/faq/ZFQ406) Chol/HDL ratio 3.0 <5.0 (calc) [facility] [...] 03/30/2025 3:00 AM CDT FASTING:YES FASTING: YES us Bib Summers MD LAB BLOOD ORDERABLES Final Result [facility] [address] [address] * TRANSTHORACIC ECHO (TTE) COMPLETE W DOPPLER/CF WO CONTRAST (03/21/2025 12:23 PM CDT) Anatomical Region Laterality Modality Ultrasound 03/21/2025 11:3 6 AM CDT Narrative 03/21/2025 1:04 [place] [address] Echocardiogram Report Patient Name: JUAN RAMON KC [...] 2.70 - 3.70 ] MV A Peak Markel 1.11 m/s [ 1.00 - 1.20 ] [...] cm. Electronically Signed By: Cande Shaffer DO, FACC, FASE, FASNC 03/21/2025 1:03:27 PM CDT Procedure Note Cande Shaffer DO - 03/21/2025 [place] [address] Echocardiogram Report Patient Name: JUAN RAMON KC [...] AMY, DIANA ARGUELLO 03/21/2025 1:03:27 PM CDT us Timur Kahn [...] MD LAB BLOOD ORDERABLES Final R esult [facility] [address] [facility]. [place] [address] * Differential, auto (03/14/2025 1:33 PM CDT) Neutrophil abs 1.76 1.50 - 6.50 K/cumm Imm gran abs 0.00 0.00 - 0.10 K/cumm [facility] Lymphocyte abs 2.34 0.80 - 3.30 K/cumm [facility] Monocyte abs 0.49 0.20 - 0.80 K/cumm [facility] Eosinophil abs 0.28 0.00 - 0.50 K/cumm [facility] Basophil abs 0.06 0.00 - 0.10 K/cumm [facility] Neutrophil pct 35.7 % [facility] Comment: Interpretive Data Percent cell count reference ranges are not reported, since discordance with absolute values may lead to misinterpretation of CBC data. Current Interpretive Data was last revised on 2018. Imm gran pct 0.0 % [facility] Comment: Interpretive Data Percent cell count reference ranges are not reported, since discordance with absolute values may lead to misinterpretation of CBC data. Current Interpretive Data was last revised on 2018. Lymphocyte pct 47.5 % [facility] Comment: Interpretive Data Percent cell count reference ranges are not reported, since discordance with absolute values may lead to misinterpretation of CBC data. Current Interpretive Data was last revised on 2018. Monocyte pct 9.9 % [facility] Comment: Interpretive Data Percent cell count reference ranges are not reported, since discordance with absolute values may lead to misinterpretation of CBC data. Current Interpretive Data was last revised on 2018. Eosinophil pct 5.7 % [facility] Comment: Interpretive Data Percent cell count reference ranges are not reported, since discordance with absolute values may lead to misinterpretation of CBC data. Current Interpretive Data was last revised on 2018. Basophil pct 1.2 % [facility] Comment: Interpretive Data Percent cell count reference ranges are not reported, since discordance with absolute values may lead to misinterpretation of CBC data. Current Interpretive Data was last revised on 2018. Blood 03/14/2025 1:33 PM CDT 03/14/2025 1:33 PM CDT Marquita Daniel MD LAB BLOOD ORDERABLES Final R esult Performing Organization Address [facility] Co de Phone Number JILL WOLFE [address] [facility] [employer] [place], [place] [id number] * (ABNORMAL) CBC with auto differential (03/14/2025 1:33 PM CDT) Pathologist [facility] WBC 4.93 3.80 - 9.90 K/cumm Hgb 13.9 11.9 - 15.5 g/dL [facility] Hct 41.3 35.6 - 45.5 % [facility] Plt 213 150 - 400 K/cumm [facility] MPV 10.9 9.1 - 12.3 fL [facility] RBC 4.16 3.90 - 5.20 M/cumm [facility] MCV 99.3(H) 81.3 - 96.4 fL [facility] MCH 33.4(H) 27.1 - 33.3 pg [facility] MCHC 33.7 32.3 - 35.7 g/dL [facility] RDW CV 13.0 11.1 - 14.9 % [facility] RDW SD 46.8 35.7 - 48.1 fL [facility] NRBC abs 0.00 0.00 - 0.01 K/cumm [facility] Blood 03/14/2025 1:33 PM CDT 03/14/2025 1:33 PM CDT Marquita Daniel MD LAB BLOOD ORDERABLES Final R esult JILL WOLFE [address] [facility] [place] [address] * Erythrocyte sedimentation rate (03/14/2025 1:33 PM CDT) Pathologist [facility] Erythrocyte sedimentation rate 8 1 - 30 mm/hr Blood 03/14/2025 1:33 PM CDT 03/14/2025 1:33 PM CDT Marquita Daniel MD LAB BLOOD ORDERABLES Final R esult Performing Organization Address [facility] Co de Phone Number JILL WOLFE [address] [facility] [place] [address] * CRP (acute phase) (03/14/2025 1:33 PM CDT) Pathologist [facility] CRP <3.0 <=10.0 mg/L Blood 03/14/2025 1:33 PM CDT 03/14/2025 1:33 PM CDT Marquita Daniel MD LAB BLOOD ORDERABLES Final R esult Performing Organization Address [facility] Phone Number JILL DE LEONCH [address] [facility] [place] [address] * Comprehensive metabolic panel (03/14/2025 1:33 PM CDT) Sodium 141 135 - 145 mmol/L Potassium, pl 4.0 3.3 - 4.9 mmol/L [facility] Chloride 104 97 - 110 mmol/L [facility] CO2 29 22 - 32 mmol/L [facility] Anion gap 8 2 - 15 mmol/L [facility] BUN 19 6 - 25 mg/dL [facility] Creatinine 0.84 0.60 - 1.10 mg/dL [facility] Glucose 94 70 - 199 mg/dL [facility] Comment: Interpretive Data Fasting glucose >/= 126 [...] LAB BLOOD ORDERABLES Final R esult [facility] [address] [facility]. Department [place] [address] * Colonoscopy (05/18/2024 11:13 AM CDT) Anatomical Region Laterality Modality Other Narrative Procedure Note Julissa Dior MD - 05/18/2024 11:13 AM CDT [facility] Patient Name: Juan Ramon Kc Procedure Date: 05/18/2024 11:13 AM Date of : 1955 Admit Type: Outpatient Age: 68 Gender: Female Attending MD: Julissa Dior M.D. Room: [facility] ENDOSCOPY ROOM 1 Note Status: Finalized Patient [...] scope was passed under direct vision. TheColonoscope [id number] was introduced through the anus and advanced [...] perforation orabscess without bleeding CPT copyright 2020 [employer]. All rights reserved. The codes documented in this report are preliminary and upon resource protection specialist reviewmay be revised to meet current compliance requirements. Recognized by the [employer] Society for Gastrointestinal Endoscopy for promoting quality in endoscopy us Julissa Dior MD ENDOSCOPY PROCEDURES Final Result [...] screening mammography. COMPARISON: 10/01/2022, 08/18/2021, 07/02/2020 - [facility]. 04/05/2019, 02/03/2018 - [facility]. TECHNIQUE: CC and MLO views of the bilateral breasts were obtained with digital technique using breast tomosynthesis with C view. Computer aided detection was utilized. FINDINGS: DENSITY: The tissue of the bilateral breasts is almost entirely fatty. BREASTS: There are no suspicious masses, suspicious calcifications, or other suspicious findings in either breast. There has been no suspicious interval change. Self Screening Mammogram IMG MAMMO PROCEDURES Fi nal Result * Hepatitis C antibody (06/30/2018 1:03 PM CDT) Hep C Ab NON-REACTI VE NON-REACTI VE [facility] [place] SIGNAL TO CUT-OFF 0.02 <1.00 [facility] [place] 06/30/2018 1:03 PM CDT 06/30/2018 1:05 PM CDT Narrative Resulting Agency Comment Performing Organization Information: Site ID: [place] Name: [facility] Address: [address] [place] [address] Director: Colt Burnett D.O., MPH Marquita Daniel MD LAB MICROBIOLOGY - GENERAL O RDERABLES Final Result [facility] [place] Garnica * Dexa Axial Skeleton Bone Density 1 or 2 Site (06/18/2015 1:00 PM CDT) Anatomical Region Laterality Modality Body N/A Radiographic Bere ging 06/18/2015 1:00 PM CDT Narrative 06/18/2015 5:59 PM CDT DEXA Bone Density Axial Acc#: [id number] DATE OF EXAM: Jun 18 2015 CLINICAL [...] DOMINIC Herrera, DR GRIFFIN on: Jun 18 2015 5:58P Attending: DONALD GARNICA Requesting: DR DONALD GARNICA Requesting Fax: -- Attending Fax: -- Attending ID: [id number] Requesting ID: [id number] Report To 1 ID: [id number] Report To 1 Name: DONALD GARNICA Report To 1 FAX: -- NextGen Order #: Procedure Note Provider, MD Chica - 03/28/2017 DEXA Bone Density Axial Acc#: [id number] DATE OF EXAM: Jun 18 2015 CLINICAL [...] Fax: -- Attending Fax: -- Attending ID: [id number] Requesting ID: [id number] Report To 1 ID: [id number] Report To 1 Name: DONALD GARNICA Report To 1 FAX: -- NextGen Order #: us Historical Provider MD ZEE DXA PROCEDURES Final Result from Last 3 Months or Most Recently Relevant to Health Maintenance Insurance [id number] (Work) [address] [address] [facility] MEDICARE [facility] Advance Directives For more information, please contact: [phone] * Full Code (Latest Code Status on File) Date Activated Date Inactivated Comments 05/18/2024 10:55 AM 05/18/2024 5:25 PM * Full Code Date Activated Date Inactivated Comments 05/18/2024 10:55 AM 05/18/2024 10:55 AM Care Teams Supervisor Title Relationship Specialty Start Date End Date Bib Summers MD [address] [place] [address] PCP - General 02/26/17 Donald Garnica MD [address] [place] [address] [address] [place] [address] Plastic Sheets Supervisor Obstetrics and Gynecology 02/24/18 Victor M Castillo DO [address] [place] [address] [address] [place] [address] Consulting Physician Gastroenterology 02/24/18 Marquita Daniel MD [address] [place] [address] [address] [place] [address] Referring Physician Rheumatology 02/24/18 Jenna Barrera MD [address] [place] [address] Consulting Physician Critical Care Med 02/25/21
--- OUTSIDE RECORDS SUMMARY | 2025-04-03 08:56 | XMS_ITS | Continuity of Care Document ---
Author Organization [facility] Address [address] [facility] [address] [place] [address] Phone Care Team Providers Care Nurse Epidemiologist Name Role Phone Bi Mccormick MD Unavailable Unavailable Allergies, Adverse Reactions, Alerts Substance Reaction Status Criticality Sulfa (Sulfonamide Antibiotics) Active No Information Medications Medication Instructions Dosage Effective Dates (start - stop) Status Comments meloxicam 7.5 mg tablet take 1 tablet by oral route 2 times every day 7.5 MG - Active potassium chloride ER 10 mEq capsule,extended release take 2 capsule by oral route every day with food 20 MEQ - Active folic acid 1 mg tablet take 1 tablet by oral route every day 1 MG - Active losartan 50 mg tablet take 1 tablet by o ral route every day 50 MG - Active furosemide 20 mg tablet take 1 tablet by oral route every day 20 MG - Active methotrexate sodium 2.5 mg tablet take 1 tablet by oral route every week 2.5 MG - Active Calcium 500 500 mg calcium (1,250 mg) tablet take 1 by oral route every day 1 - Active multivitamin tablet take 1 tablet by ora l route every day 1 tablet - Active Simponi 50 mg/0.5 mL subcutaneous pen injector inject 0.5 milliliter by subcutaneous route every month 50 MG - Active Procedures Procedure Date Refraction Eye Exam & Treatment Fundus Photography W/ Report Eye Exam & Treatment Office/outpatient Visit, Est Office/outpatient Visit, Est No Charge Optomap Fundus Photos 021 SCODI, Retina Refraction Eye Exam, New Patient Advance Directives Directive Yes / No Effective Date File Name No Information Encounters Encounter Description Practice Location Reason(s) For Visit Diagnoses Date Provider Providers Copied on Encounter [facility], [address] [place] [address] [address], [place], [place], [id number], tel:[phone] SEC Pedro Luis [place] Professional Complete Exam (chief complaint) Age-related nuclear cataract, bilateralDrus en (degenerative ) of macula, left eye 3 [address], [facility] [address], [place], [place], [address], [place]. tel:[phone] Marquita Daniel MD.Referring Provider: Bib Summers MD, [address], [place], [place], [facility]. tel:[phone] [facility], [address] [place] [address] [address], [place], [place], [address], tel:[phone] SEC Pedro Luis LOWE Professional Complete Exam (chief complaint) Age-related nuclear cataract, bilateralHigh risk medication useDrusen (degenerative ) of macula, left eye 2 [address], [address], [place], [place], [address], [place]. tel:[phone] Marquita Daniel MD.Referring Provider: Bib Summers MD, [address], [place], [address]. tel:[phone] Office/outpa tient Visit, Est [facility], [address] [place] [address] [address], [place], [place], [address], [place] tel:[phone] SEC Brickeys [place] Professional 1.5 wk Shingles f/u (chief complaint) Herpes zoster without complication Jul-0 1 [address], [address], [place], [place], [address], [place]. tel:[phone] Marquita Daniel MD.Referring Provider: Bib Summers MD, [address], [place], [address]. tel:[phone] Office/outpa tient Visit, Est [facility] Eye [facility], [address], [place], [place], [address], [place] tel:[phone] SEC Pedro Luis LOWE Professional WIE (chief complaint) Herpes zoster without complication 1 [address] [facility], [address], [place], [place], [address], [place]. tel:[phone] Marquita Daniel MD.Referring Provider: Bib Summers MD, [address], [place], [address]. tel:[phone] [facility], [address], [place], [place], [address], [place] tel:[phone] SEC Pedro Luis LOWE Professional Complete Exam (chief complaint) Age-related nuclear cataract, bilateralDry eye syndrome of right lacrimal glandHigh risk medication use 1 [address] [facility], [address], [place], [place], [address], [place]. tel:[phone] Marquita Daniel MD.Other Provider: Marquita Daniel MD, [address] [facility] 5th [address], [place], [address]. tel:[phone] ng Provider: Bib Summers MD, [address], [place], [address]. tel:[phone] [facility], [address], [place], [place], [address], [place] tel:[phone] SEC Pedro Luis LOWE Professional No Information 1 [address] [facility], [address], [place], [place], [address], [place]. tel:[phone] Specialist: Marquita Daniel MD, [address], [place], [address]. tel:[phone] Family History Family Member Type Diagnosis Age At Onset Problem Family history of Diabetes onelia day Payers Payer name Insurance type Covered republican ID Authormonico sears(s) Medicare CHRISSY TOMÁS [id number] [facility] [id number] Social History Type Description Quantity Date Captured Comments Alcohol Use Details Caffeine Use Details Tobacco Use Status Current non-smoker Smoking Status Never smoker Non-Smoking Tobacco Use Details : No Details Available : No Details Available Sex Female Chief Complaint And Reason For Visit From encounter dated 05/07/2023 13:15'. Complete Exam (chief complaint). Description: The 67 year old patient presents for evaluation of Complete Exam in the right eye and left eye. Patient denies any changes with eyes. VA seems stable OU. Reason For Referral Reason For Referral No Information Plan Of Treatment Date Type Action Status Patient Education Cataracts: Care Instruc tions completed Patient Education Cataracts: Care Instruc tions completed Patient Education Shingles: Care Instruct ions completed Patient Education Shingles: Care Instruct ions completed History Of Present Illness Encounter Date Complaint History Of Prese nt Illness Complete Exam The 67 year old patient presents for evaluation of Complete Exam in the right eye and left eye. Patient denies any changes with eyes. VA seems stable OU. Complete Exam The 66 year old patient presents for evaluation of Complete Exam in the right eye and left eye. Hx of Cataracts OU and MARGARET OU. Pt also has Hx of Herpes Zoster without ocular complications. Pt has RA and is taking Simponi and Methotrexate 2.5. Pt states vision is stable OU x 1 yr. She will occasionally see star around lights at night, but it is not bothersome. 1.5 wk Shingles f/u The 65 year old female presents for evaluation of 1.5 wk Shingles f/u in the right eye and left eye. Pt reports she is doing a lot better this week than she was last week. Pt reports she did get one spot on RUL but it has dried up now. Pt reports her last day of Valtrex was yesterday. WIE The 65 year old female presents for evaluation of WIE in the right eye. Patient has shingles and Dr. Summers sent patient over. Patient states Wednesday OD was itching. Patient states she woke up this am and had spots on her forehead. Complete Exam The 65 year old female presents for evaluation of Complete Exam in the right eye and left eye. Patient states she is taking medication for RA and her Dr. Summers said since he has not had an eye exam in years she needed to see Dr. Mccormick. Patient states she occasionally has floaters in both eyes especially when she is reading and looks up. Patient is wanting a new rx for glasses today. Functional Status Date Functional Assessmen t No Information Instructions Date Instruction Additional Infor elsi Impression/Plan Impression/Plan Impression/Plan Impression/Plan Impression/Plan Assessments Type Assessment Date assessment Age-related nuclear cataract, bi lateral assessment Drusen (degenerative) of macula, left eye Patient Care Teams Name Effective Dates (start - stop) Status Members No Information
--- OUTSIDE RECORDS SUMMARY | 2025-04-03 08:56 | XMS_ITS | Encounter Summary ---
Author Organization [facility] Address [address] [place] [address] Phone Care Team Providers Care Environmental Officer Name Role Phone Bib Summers MD Primary Care Provider +- [phone] Donald Garnica MD Unavailable [phone] Victor M Castillo DO Unavailable [phone] Marquita Daniel MD Unavailable [phone] Annabella Ray MD Unavailable [phone] Jenna Barrera MD Unavailable [phone] Encounter Details Date Type Department Care Team (Late st Contact Info) Description 08/27/2017 Orders Only [facility] [address] [place] [address] Bib Summers MD [address] [place] [id number] Social History Tobacco Use Types Packs/Day Years Used Date Smoking Tobacco: Never Smokeless Tobacco: Never Alcohol Use Standard Drinks/Week Comments Yes 0 (1 standard drink = 0.6 oz pur e alcohol) Comments Unknown Sex and Gender Information Value Date Recorded Sex Assigned at Not on file 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 Gender Identity Not on file Sexual Orientation Not on file documented as of this encounter Plan of Treatment Not on file documented as of this encounter Procedures Procedure Name Priority Date/Time Associated Diagnosis Comments SCAN - LABS 08/27/2017 9:56 AM CDT documented in this encounter Results * SCAN - LABS (08/27/2017 9:56 AM CDT) Bib Summers MD Final Resu lt documented in this encounter Visit Diagnoses Not on filedocumented in this encounter Additional Health Concerns Infection Onset Date Last Indicated Resolved Time COVID: Suspected 07/09/2022 07/09/2022 07/09/2022 1:33 PM CDT documented as of this encounter Care Teams Environmental Officer Relationship Specialty Start Date End Date Bib Summers MD [address] [place] [address] PCP - General 02/26/17 Donald Garnica MD [address] [facility] [address] [place] [address] Figurine Maker Obstetrics and Gynecology 02/24/18 Victor M Castillo DO [address] [facility] [address] [place] [address] Consulting Physician Gastroenterology 02/24/18 Marquita Daniel MD [address] [facility] [address] [place] [address] Referring Physician Rheumatology 02/24/18 Annabella Ray MD [address] [facility] [address] [place], [place] [address] Referring Physician Pulmonary Disease 09/15/18 02/24/21 Jenna Barrera MD [address] [facility] [address] [place], [place] [address] Consulting Physician Critical Care Med 02/25/21 documented as of this encounter
--- OUTSIDE RECORDS SUMMARY | 2025-04-03 08:56 | XMS_ITS | Encounter Summary ---
Author Organization [facility] Address [address] [place] [address] Phone Care Team Providers Care Codifier Name Role Phone Bib Summers MD Primary Care Provider +- [phone] Donald Garnica MD Unavailable [phone] Victor M Castillo DO Unavailable [phone] Marquita Daniel MD Unavailable [phone] Annabella Ray MD Unavailable [phone] Jenna Barrera MD Unavailable [phone] Encounter Details Date Type Department Care Team (Late st Contact Info) Description 11/19/2017 Orders Only [facility] [address] [place] [address] Bib Summers MD [address] [place] [id number] Social History Tobacco Use Types Packs/Day Years Used Date Smoking Tobacco: Never Smokeless Tobacco: Never Alcohol Use Standard Drinks/Week Comments Yes 0 (1 standard drink = 0.6 oz pur e alcohol) Comments Unknown Sex and Gender Information Value Date Recorded Sex Assigned at Not on file 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 Gender Identity Not on file Sexual Orientation Not on file documented as of this encounter Plan of Treatment Not on file documented as of this encounter Procedures Procedure Name Priority Date/Time Associated Diagnosis Comments SCAN - LABS 11/19/2017 2:04 PM SPA DIRECTOR/FINANCE documented in this encounter Results * SCAN - LABS (11/19/2017 2:04 PM SPA DIRECTOR/FINANCE) us Bib Summers MD Final Resu lt documented in this encounter Visit Diagnoses Not on filedocumented in this encounter Additional Health Concerns Infection Onset Date Last Indicated Resolved Time COVID: Suspected 07/09/2022 07/09/2022 07/09/2022 1:33 PM CDT documented as of this encounter Care Teams Codifier Relationship Specialty Start Date End Date Bib Summers MD [address] [place] [address] PCP - General 02/26/17 Donald Garnica MD [address] [facility] [address] [place] [address] Earth Science Faculty Member Obstetrics and Gynecology 02/24/18 Victor M Castillo DO [address] [place] [address] [address] [place] [address] Consulting Physician Gastroenterology 02/24/18 Marquita Daniel MD [address] [place] [address] [address] [place] [address] Referring Physician Rheumatology 02/24/18 Annabella Ray MD [address] [place] [address] Referring Physician Pulmonary Disease 09/15/18 02/24/21 Jenna Barrera MD [address] [place] [address] Consulting Physician Critical Care Med 02/25/21 documented as of this encounter
--- OUTSIDE RECORDS SUMMARY | 2025-04-03 08:56 | XMS_ITS | Encounter Summary ---
Author Organization [facility] Healthcare Address [address] [place] [address] Care Team Providers Care Port Traffic Manager Name Role Phone Bib Summers MD Primary Care Provider [phone] Donald Garnica MD Unavailable [phone] Victor M Castillo DO Unavailable [phone] Marquita Daniel MD Unavailable [phone] Jenna Barrera MD Unavailable [phone] Reason for Visit * Reason Comments Follow-up 6 mo Encounter Details Date Type Department Care Team (Late st Contact Info) Description 04/02/2025 11:00 AM CDT Office Visit [facility] [address] [place] [phone] Bib Summers MD [address] [facility] [address] [place] [address] Pure hypercholesterolemia (Primary Dx); MUNGUIA (dyspnea on exertion); Seronegative rheumatoid arthritis (HCC) Social History Tobacco Use Types Packs/Day Years [...] on file 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 Gender Identity Not on file Sexual Orientation Not on file documented as of this encounter Last Filed Vital Signs Vital Sign Reading Time Taken Comments Blood Pressure 132/88 04/02/2025 10:47 AM CDT Pulse 72 04/02/2025 10:47 AM CDT Temperature 36.8 C (98.2 F) 04/02/2025 10:47 AM CDT Respiratory Rate 16 04/02/2025 10:4 7 AM CDT Oxygen Saturation - - Inhaled Oxygen Concentration - - Weight 90.2 kg (198 lb 12.8 oz) 025 10:47 AM CDT Height 164.1 cm (5' 4.6 ) 04/02/2025 10 :47 AM CDT Body Mass Index 33.49 04/02/2025 10:47 AM CDT documented in this encounter Patient Instructions * Patient Instructions* Bib Summers MD - 04/02/2025 11:00 AM CDT GET LAST OVE FROM DR SANDHU I NEED THE CT SCAN AND EKG FROM [facility] TO BE DONE TOMORROW FLP IN SIX MONTH documented in this encounter Progress Notes * Bib Summers MD - 04/02/2025 11:00 AM CDT Images from the original note were not included. Winsome Kc is a 69 y.o. year old White Non- female here FOR HER SIX MONTHLY ASSESSMENT AND PLAN: Diagnoses and all orders for this visit: Pure hypercholesterolemia (Primary) Assessment & Plan: FLP AND LDL WERE REVIEWED GOAL LDL IS UNDER 100 Orders: - Lipid panel; Future MUNGUIA (dyspnea on exertion) Assessment & Plan: WITH INITIALLY AN 2 D ECHO NEG NL EWF CXR WITH LUNG LESION S/P CT OF THE CHEST WITH NEG BIOPSY Seronegative rheumatoid arthritis (HCC) Assessment & Plan: CHRONIC AND STABLE ON SIMPONI EVERY 8 WEEKS HPI SERONEGATIVE RA ( ON SIMPONIA ) H/O LUNG LESION WITH A NEG BIOPASY SOB WITH A NL ECHO / CXR AND CT SCAN OF THE CHEST REVIEWED B/L LE EDEMA DEPENDENT IN NATURE RIGHT KNEE REPLACEMENT TO BE DONE BY DR SANDHU Health Maintenance: IMMUNIZATIONS WERE REVIEWED SHE HASN'T SEEN THE EYE DOCTOR SHE IS SEEING THE DENTIST IN [place] New Problems , RIGHT KNEE PAIN Allergies: Allergies Allergen Reactions Sulfa (Sulfonamide Antibiotics) Rash Sulfasalazine Rash Lisinopril Cough Medication Changes today : NONE Procedures : NONE Vitals: Vitals BP 132/88 Pulse 72 Temp 36.8 ??C (98.2 ??F) Resp 16 Ht 164.1 cm (5' 4.6 ) Wt 90.2 kg (198 lb 12.8 oz) BMI 33.49 kg/m?? Body mass index is 33.49 kg/m??. Review of Systems: Review of Systems Constitutional: Negative. HENT: Negative. Respiratory: Negative. Genitourinary: Negative. Neurological: Negative. Exam: Physical Exam Constitutional: Appearance: Normal appearance. Cardiovascular: Rate and Rhythm: Normal rate and regular rhythm. Pulses: Normal pulses. Heart sounds: Normal heart sounds. Pulmonary: Effort: Pulmonary effort is normal. Breath sounds: Normal breath sounds. Musculoskeletal: General: Normal range of motion. Cervical back: Normal range of motion and neck supple. Skin: General: Skin is warm. LABS : Lab Results Component Value Date WBC 4.93 03/14/2025 HGB 13.9 03/14/2025 HCT 41.3 03/14/2025 MCV 99.3 (H) 03/14/2025 Lab Results Component Value Date GLUCOSE 94 03/14/2025 CALCIUM 9.4 03/14/2025 SODIUM 141 03/14/2025 POTASSIUM 4.0 03/14/2025 CO2 29 03/14/2025 CHLORIDE 104 03/14/2025 BUNSER 19 03/14/2025 CREATININE 0.84 03/14/2025 Care Team Providers: Bib Summers MD documented in this encounter Miscellaneous Notes * Assessment & Plan Note - Bib Summers MD - 04/02/2025 6:32 PM CDT Associated Problem(s): Seronegative rheumatoid arthritis (HCC) CHRONIC AND STABLE ON SIMPONI EVERY 8 WEEKS * Assessment & Plan Note - Bib Summers MD - 04/02/2025 6:32 PM CDT Associated Problem(s): Pure hypercholesterolemia FLP AND LDL WERE REVIEWED GOAL LDL IS UNDER 100 * Assessment & Plan Note - Bib Summers MD - 04/02/2025 6:32 PM CDT Associated Problem(s): MUNGUIA (dyspnea on exertion) WITH INITIALLY AN 2 D ECHO NEG NL EWF CXR WITH LUNG LESION S/P CT OF THE CHEST WITH NEG BIOPSY documented in this encounter Plan of Treatment Scheduled Orders Name Type Priority Associated Diagnoses Orde r Schedule Lipid panel Lab Routine Pure hypercholesterolemia Expected: 10/03/2025, Expires: 04/02/2026 documented as of this encounter Visit Diagnoses Diagnosis Pure hypercholesterolemia- Primary MUNGUIA (dyspnea on exertion) Other dyspnea and respiratory abnormality Seronegative rheumatoid arthritis (HCC) Rheumatoid arthritis documented in this encounter Discontinued Medications Medication Sig Discontinue Reason Start Date End Da te folic acid (FOLVITE) 1 mg tablet Take 2 tablets by mouth once daily 09/12/2024 04/02/2025 albuterol HFA (Proventil HFA) 90 mcg/actuation inhaler Inhale 2 puffs every 4 (four) hours as needed for wheezing or shortness of breath 03/24/2024 04/02/2025 methotrexate 2.5 mg tabletIndications:autoi mmune disease Take 2 tablets (5 mg total) by mouth every 7 days 07/11/2024 04/02/2025 documented as of this encounter Care Teams Port Traffic Manager Relationship Specialty Start Date End Date Bib Summers MD [address] [place] [address] PCP - General 02/26/17 Donald Garnica MD [address] [facility] [address] [place] [address] Scientific Helper Obstetrics and Gynecology 02/24/18 Victor M Castillo DO [address] [facility] [address] [place] [address] Consulting Physician Gastroenterology 02/24/18 Marquita Daniel MD [address] [facility] [address] [place] [address] Referring Physician Rheumatology 02/24/18 Jenna Barrera MD [address] [place] [address] Consulting Physician Critical Care Med 02/25/21 documented as of this encounter
--- NOTE | 2025-04-03 09:08 | ECG_ITS ---
Test Date: 2025-04-03 09:25:13 Measurements Intervals [place] Rate: 63 P: 60 CO: 195 QRS: -2 QRSD: 90 T: 47 QT: 387 QTc: 399 Interpretive Statements SINUS RHYTHM No previous ECG available for comparison Electronically Signed On 04-03-2025 14:31:38 CDT by Enrique Wyatt M.D.
== END 2025-04-03 08:34 | disposition home or self-care (01) ==
PROVIDERS: PCP Internal Medicine Infectious Disease; Visit Provider Orthopaedic Surgery
DX: M17.11 Unilateral primary osteoarthritis, right knee (principal); I10 Essential (primary) hypertension
CPT/HCPCS: 73700; 93005

== ENCOUNTER 2025-05-28 09:46 | Outpatient (CLI) | payer MEDICARE, OTHER, SELFPAY ==
[2025-05-28 11:21] LABS: Basophils Absolute Auto 0.1 K/mm3 (0.0-0.1); Eosinophils Absolute Auto 0.3 K/mm3 (0-0.3); Eosinophils Percent Auto 4.6 % (0-4.4); Hematocrit 40.9 % (37.0-47.0); Hemoglobin 13.7 g/dL (12.0-15.0); Immature Granulocyte Absolute 0.01 K/mm3 (0.00-0.031); Immature Granulocyte Percent A 0.2 % (0-0.5); Lymphocytes Absolute Auto 2.63 K/mm3 (0.9-3.2); Lymphocytes Percent Auto 44.7 % (18.3-44.2); Mean Corpuscular HGB Conc 33.5 g/dl (32-36); Mean Corpuscular Hemoglobin 33.1 pg (26-34); Mean Corpuscular Volume 98.8 fl (80-100); Monocytes Absolute Auto 0.6 K/mm3 (0.1-0.6); Neutrophils Absolute Auto 2.3 K/mm3 (1.3-6.7); Neutrophils Percent Auto 39.5 % (45.5-73.1); Platelet Count Result 208 k/mm3 (150-375); Red Blood Count 4.14 M/mm3 (4.2-5.4); Red Cell Distribution Width 12.9 % (11.5-14.5); White Blood Count 5.9 K/mm3 (4.5-10.0)
[2025-05-28 11:29] LABS: Albumin Level 4.2 g/dL (3.5-5.1)
[2025-05-28 11:30] LABS: Urine Cotinine NEGATIVE
[2025-05-28 11:35] LABS: Anion Gap 6 mmol/L (4-12); Blood Urea Nitrogen 16 mg/dL (7-17); Calcium 9.3 mg/dL (8.4-10.2); Carbon Dioxide 30 mmol/L (22-30); Chloride 104 mmol/L (98-107); Estimated Glomerular Filt Rate > 60; Glucose 97 mg/dL (65-110); Potassium 4.2 mmol/L (3.4-5.0); Sodium 140 mmol/L (137-145)
[2025-05-28 12:16] LABS: Hemoglobin A1C. 5.3 % (<5.7)
[2025-05-28 12:45] LABS: MRSA (PCR) NOT DETECTED (NOT DETECTE)
== END 2025-05-28 09:47 | disposition home or self-care (01) ==
PROVIDERS: Anesthesiology; PCP Internal Medicine Infectious Disease; Visit Provider Orthopaedic Surgery
DX: Z01.812 Encounter for preprocedural laboratory examination (principal); M17.11 Unilateral primary osteoarthritis, right knee; Z79.899 Other long term (current) drug therapy
CPT/HCPCS: 36415; 80048; 80307; 82040; 83036; 85025; 87641

== ENCOUNTER 2025-06-26 02:02 | Day surgery (SDC) | payer MEDICARE, OTHER, SELFPAY ==
[2025-05-28 10:14] VITALS: BP 112/88; PULSE 72; RESP 16; TEMP 37.2; O2SAT 99; BMI 33.7
--- NOTE | 2025-05-28 10:37 | PC.NURSE ---
Report to the Outpatient Waiting Room, entrance under the green pavilion located off [facility], at time _0800am on date _06/26/25 . Planned Procedure Time: _10:00am .? Time changes happen often and if your time is changed the preop area will call you the afternoon before. - You and your visitor will be asked to self-screen and do not enter if you have any COVID symptoms. Please call surgeon if you need to reschedule. - A mask is optional within the hospital at this time. Patients may have clear liquids (water, carbonated beverages, clear teas, apple juice) until 3 hours prior to surgery with a maximum of 20 ounces. - No food from midnight until time of surgery and no smoking, or chewing tobacco (or any form of nicotine). No chewing gum, candy or mints. (07:00am) Take only the following medications with a SIP of water on the morning of surgery: Tylenol if needed DO NOT STOP ANY OF YOUR OTHER PRESCRIPTION MEDICATIONS PRIOR TO SURGERY EXCEPT THE FOLLOWING Hold all vitamins and supplements for 3 days per anesthesiologist. Date to take last dose 06/22/25 Medications to discontinue per physician NSAIDS, MOTRIN, ALEVE, [id number] and any aspirin containing products [address] Agosto 06/17/25 Please no make-up, nail armenian, hairspray, perfume, deodorant, or body powder the day of surgery.? No jewelry (including any body piercings) or valuables the day of surgery, leave them at home.? Please take a shower or bath the night before, or the morning of, surgery with an antibacterial soap.? Wear comfortable, loose fitting clothing.? CPAP and Cell phone, Cell Phone pe teacherBenji walker Toiltetries - Jewelry must be removed prior to entering the operating room.? Rings and piercings that are not removed may be cut off. - The hospital will not accept responsibility for valuables.? - Please leave all valuables, including medications, at home the day of surgery. If you are going home after surgery, a licensed pile driver engineer must drive you home.? - NO public transportation without another adult if you receive anesthesia. - We recommend that an adult stay with you for 24 hours following discharge. - We also recommend that you do not drive, make important decision, drink alcoholic beverages, or take any drugs that were not prescribed by your health care provider for at least 24 hours after your discharge time. Follow any additional instructions given to you from your surgeon. Telephone instructions given to __Patient and asked if any additional questions and then verbalized understanding. Patient advised to call surgeon office or pre surgery nurse liaison [phone] if any additional questions.
[2025-06-26] VITALS (14 sets, daily range): BP systolic 124–145; BP diastolic 60–90; PULSE 61–77; RESP 10–158; TEMP 31.9–36.6; O2SAT 96–100
--- NOTE | ~2025-06-26 | XR_ITS ---
EXAMINATION: [id number] DATE: 06/26/2025 12:34 CDT INDICATION: Postoperative evaluation TECHNIQUE: 2 views right knee FINDINGS: There is a right total knee arthroplasty, with patellar resurfacing in expected position. Subcutaneous gas with fluid and air in the joint, consistent with recent intervention. No periprosthetic fracture. IMPRESSION: Expected perioperative appearance of a right total knee arthroplasty and patellar resurfacing, withou t periprosthetic fracture. Reviewed, dictated and finalized at location A. IMPRESSION: Expected perioperative appearance of a right total knee arthroplasty and patell ar resurfacing, without periprosthetic fracture.
--- OUTSIDE RECORDS SUMMARY | 2025-06-26 02:05 | XMS_ITS | Encounter Summary ---
Author Organization [facility] Address [address] [place] [address] Phone Care Team Providers Care Manager Sas Name Role Phone Kristopher, Bib Lira MD Primary Care Provider [phone] Donald Garnica MD Unavailable [phone] Victor M Castillo DO Unavailable [phone] Marquita Daniel MD Unavailable [phone] Jenna Barrera MD Unavailable [phone] Encounter Details Date Type Department Care Team (Late st Contact Info) Description 10/01/2022 Orders Only [facility] [address] 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 Gender Identity Not on file Sexual Orientation [...] on filedocumented in this encounter Care Teams Manager Sas Relationship Specialty Start Date End Date Bib Summers MD [address] [place] [address] PCP - General 02/26/17 Donald Garnica MD [address] [facility] [address] [place] [address] Mobile Phlebotomist Obstetrics and Gynecology 02/24/18 Victor M Castillo DO [address] [facility] [address] [place] [address] Consulting Physician Gastroenterology 02/24/18 Marquita Daniel MD [address] [facility] [address] [place] [address] Referring Physician Rheumatology 02/24/18 Jenna Barrera MD [address] [place], [place] [address] Consulting Physician Critical Care Med 02/25/21 documented as of this encounter
--- OUTSIDE RECORDS SUMMARY | 2025-06-26 02:05 | XMS_ITS | Clinical Summary ---
Author Organization [facility] Address [address], [facility] [address] [place] [address] Phone Care Team Providers Care Line Repairer Tower Name Role Phone Bib Summers MD Primary Care Provider [phone] Calixto Alvarez MD Unavailable [phone] Allergies Active Allergy Reactions Criticality Noted Date [...] mEq by mouth daily. Active Probiotic Product (Gendel PO) Take 1 Tab by mouth daily. [...] Industry Job Start Date Job End Date [facility] rehab center Not on file Not [...] A M CDT Height 165.1 cm (5' 5) 04/19/2024 9:23 AM CDT Body Mass Index 34.71 04/19/2024 9:23 AM CDT Plan of Treatment Health Maintenance Due Date Last Done Comments Hepatitis C Virus (HCV) Screening 1955 Cologuard 1998 Immunochemical Fecal Occult Blood 1998 Respiratory Syncytial Virus (RSV) Immunization (Adult) (1 - Risk 60-74 years 1-dose series) 2013 DEXA Bone Density 06/18/2017 06/18/2015 SARS-COV-2 Immunization (3 - 2024-25 season) 2024 09/29/2021, 02/08/2021 Mammogram 05/06/2025 05/06/2024, 01/2022, 08/18/2021, Additional history exists Influenza Immunization (#1) 07/30/202502/2024, 09/05/2023, 09/02/2023, Additional history exists Colonoscopy 05/18/2034 05/18/2024, 04/2018, 09/05/2012 Colorectal Cancer Screening 05/18/2034 Pneumococcal Immunization (50+ years) Completed 08/11/2020, 08/11/2020, 06/14/2019 Pneumococcal Immunization Combined Discontinued 08/11/2020, 08/11/2020, 06/14/2019 Zoster Immunization Completed 05/07/2022, DTaP/Tdap/Td Immunization Discontinued 2021, 01/19/2011, 11/29/2010 TdaP Immunization Completed 09/02/2022, 01/19/2011 Hepatitis B Immunization Aged Out No longer [...] 3:11 PM CDT Narrative 10/05/2022 9:56 AM FLOOR HAND - RICKY SCREENING BILATERAL DIGITAL W CAD [...] 07/02/2020 [facility], and 04/05/2019 [facility]. BREAST TISSUE:The tissue of both breasts is [...] exam. Electronically signed by: Akila cherry/michelle:10/02/2022 15:13:28 Bulk Mail Technician(s): RT Pantera(R)(M), [facility] letter sent: Normal Exam Reading location: [facility] BI-RADS: 2 Benign Procedure Note Akila Hernandez [...] 07/02/2020 [facility], and 04/05/2019 [facility]. BREAST TISSUE:The tissue of both breasts is [...] exam. Electronically signed by: Akila cherry/michelle:10/02/2022 15:13:28 Bulk Mail Technician(s): RT Pantera(R)(M), [facility] letter sent: Normal Exam Reading location: [facility] BI-RADS: 2 Benign us Bib Summers MD IMG MAMMO ORDERABLES Final Result * HM COLONOSCOPY (09/05/2012) us Victor M Castillo DO PROCEDURE/MINOR SURGICAL ORDERA BLES Final Result from Last 3 Months or Most Recently Relevant to Health Maintenance Insurance MEDICARE [employer] MEDICARE SUP Care Teams Line Repairer Tower Relationship Specialty Start Date End Date Bib Summers [place] [address] PCP - General Internal Medicine 03/16/18 Calixto Alvarez MD [address] [place] [place] [address] Consulting Physician Medical Oncology 04/19/24
--- OUTSIDE RECORDS SUMMARY | 2025-06-26 02:05 | XMS_ITS ---
Author Organization [facility] Address [address] [place] [address] Care Team Providers Care Design Printer Balloon Name Role Phone Bib Summers MD Primary Care Provider + [phone] Donald Garnica MD Unavailable [phone] Victor M Castillo DO Unavailable [phone] Marquita Daniel MD Unavailable [phone] Jenna Barrera MD Unavailable [phone] Active Problems Problem Noted Date Diagnosed Date [...] [facility] abnormal ct [facility] at [facility] Also I referred her to dr [...] arrange for her to have infusions in [place] and right orders if we are not [...] therapy. 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
--- OUTSIDE RECORDS SUMMARY | 2025-06-26 02:05 | XMS_ITS | Clinical Summary ---
Author Organization [facility] Address [address] [place] [address] Care Team Providers Care Marketing Secretary Name Role Phone Bib Summers MD Primary Care Provider [phone] Donald Garnica MD Unavailable [phone] Victor M Castillo DO Unavailable [phone] Marquita Daniel MD Unavailable [phone] Jenna Barrera MD Unavailable [phone] Allergies Active Allergy Reactions Criticality Noted Date Comments Lisinopril Cough Low 06/19/2019 Sulfa (Sulfonamide Antibiotics) Rash Medium 05/30 Sulfasalazine Rash Medium 06/21/2018 Medications calcium carbonate (CALCIUM 600) 1,500 mg (600 mg of elemental calcium) tablet ONE DAILY 0 10/27/2011 Act maria elena multivit-mineral -iron-lutein (CENTRUM SILVER ULTRA WOMEN'S) tablet ONE DAILY 0 10/27/2011 Active uixdoibwxet-D9-T oswellia serr (OSTEO BI-FLEX, 5-LOXIN,) 1,500-400-100 mg-unit-mg tablet once daily 0 12/08/[address] (NexIUM) 20 mg packet Take 20 mg by mouth daily as needed Active golimumab (SIMPONI ARIA) 12.5 mg/mL solutionIndicati ons:Rheumatoid Arthritis every 8 (eight) weeks Active furosemide (LASIX) 20 mg tablet Take 1 tablet (20 mg total) by mouth daily 90 tablet 3 09/10/2023 Active losartan (COZAAR) 50 mg tablet Take 1 tablet (50 mg total) by mouth daily 90 tablet 3 09/11/2024 Active meloxicam (MOBIC) 7.5 mg tabletIndication s:Osteoarthritis ,Rheumatoid Arthritis Take 1 po every day 90 tablet 3 09/11/2024 Active ibuprofen (ADVIL,MOTRIN) 800 mg tablet Take 1 tablet (800 mg total) by mouth 3 (three) times a day as needed 12/14/2024 Active potassium chloride ER (KLOR-CON) 10 mEq CR tablet Take 1 tablet by mouth once daily 90 tablet 03/13/2025 Active Active Problems Problem Noted Date Diagnosed [...] [facility] Also I referred her to dr [...] arrange for her to have infusions in [place] and right orders if we are not [...] therapy. 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): Clinically she has had a significant improvement [...] Encounters Date Type Department Care Team Description 05/25/2025 Telephone [facility] Pulmonary at [address] [place] [address] Jackelyn Jacome LPN Anesthesia at [place] request OV note 05/09/2025 11:30 AM CDT Office Visit [facility] Rheumatology [address] [facility] Building [address] [place] [phone] Hilary Mena NP Seronegative rheumatoid arthritis (HCC) (Primary Dx); High risk medication use; Generalized osteoarthritis; Pulmonary nodule 05/09/2025 11:00 AM CDT Infusion [facility] Infusion Therapy 10 [facility] Office Building [address] [place] [address] Seronegative rheumatoid arthritis (HCC) (Primary Dx) 04/05/[address] [facility] Health Information Management [address] [place] [address] Scanning, Provider 04/02/2025 11:00 AM CDT Office Visit [facility] [address] [place] [address] [address] [place] [address] Bib Summers MD Pure hypercholesterolemia (Primary Dx); MUNGUIA (dyspnea on exertion); Seronegative rheumatoid arthritis (HCC) 03/29/2025 Telephone [facility] Pulmonary at [address] [place] [address] Jackelyn Jacome LPN from Last 3 Months Immunizations Immunization Administration Dates Next Due Influenza, Quadrivalent, Hig h Dose, Preservative Free, Intrr 09/05/2023,08/31/2022,08/22/2021,08/11 Influenza, Split 09/18/2010,11/29/2009 Influenza, Trivalent, High D ose, Split, Preservative Free, Intramuscular 08/02/2024,08/11/2020,08/08/2019 Influenza, Trivalent, IM (MDV) 08/16/2012 Influenza, Trivalent, Preser vative Free, Intramuscular 08/28/2011 Influenza, Unspecified 08/02/2024,2021,08/25/2021,08/08 Nexant (J&J) SARS-CoV-2 Vaccination 02/08/2021 Pfizer SARS-CoV-2 Monovalent [...] on file Legal Sex Female 11:31 AM 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 Gender Identity Not on file Sexual Orientation Not on file Obstetrics History Para Term AB IAB SAB Ectopic Multiple Livin g Live Births 3 3 3 3 3 Date Outcome GA Total Labor Labor/2nd/3rd Weight Sex Type Anes PTL Kat A1 A5 Name Clin Term Living Term Living Term Living Last Filed Vital Signs Vital Sign Reading Time Taken Comments Blood Pressure 156/86 05/09/2025 12:17 PM CDT Pulse 80 05/09/2025 12:17 PM CDT Temperature 36.8 C (98.3 F) 05/09/2025 10:50 AM CDT Respiratory Rate 16 04/02/2025 10:47 AM CDT Oxygen Saturation 97% 05/09/2025 10:50 AM CDT Inhaled Oxygen Concentration - - Weight 92.1 kg (203 lb) 05/09/2025 10:50 AM CDT Height 164.1 cm (5' 4.6) 05/09/2025 10:50 AM CD T Body Mass Index 34.2 05/09/2025 10:50 AM CDT Plan of Treatment Health Maintenance Due Date Last Done Comments Hepatitis B Screening 1973 Osteoporosis Screening-Bone Density Scan 06/18/2017 06/18/2015, 06/18/2015 Covid-19 Vaccine (2023-2 5 season) 2024 09/29/2021, 02/08/2021 Breast Cancer Screening-Mammogram 05/06/2025 05/06/2024, 05/06/2024, 10/01/2022, Additional history exists Fall Risk Assessment 06/02/2025 06/02/2024, 09/02/2021, 08/26/2020, Additional history exists Influenza Vaccine (#1) 2025 , 08/02/2024, 09/05/2023, Additional history exists Well Visit 65+ 09/11/2025 [...] Discontinued 05/18/2024 Colon Cancer Screening-Sigmoidoscopy Discontinued 05/18/2024 Procedures Procedure Name Priority Date/Time Associated Diagnosis Comments SCAN - RADIOLOGY/IMAGING 04/05/2025 3:12 PM CDT LIPID PANEL Routine 03/29/2025 7:52 AM CDT Pure hypercholesterolemia COLONOSCOPY 05/18/2024 11:13 AM CDT SCREENING MAMMOGRAM BILATERAL W DONY Schedule Routine, Read Routine (OP Routine) 05/06/2024 9:13 AM CDT Screening mammogram, encounter for HEPATITIS C ANTIBODY Routine 06/30/2018 1:03 PM CDT DEXA AXIAL SKELETON BONE DENSITY 1 OR MORE SITES Routine 06/18/2015 1:00 PM CDT from Last 3 Months or Most Recently Relevant to Health Maintenance Results * SCAN - RADIOLOGY/IMAGING (04/05/2025 3:12 PM CDT) Anatomical Region Laterality Modality Other us Provider Scanning Final Result * (ABNORMAL) Lipid panel (03/29/2025 7:52 AM [...] equation in the estimation of LDL-C. Maximino JIMENEZ et al. TINO. 2013;310(19): 6565-9672 (http://education.myTips.Kipu Systems/faq/GVY271) Chol/HDL ratio 3.0 <5.0 (calc) [facility] [...] Summers MD LAB BLOOD ORDERABLES Final Result [facility] [address] [place] [address] * Colonoscopy (05/18/2024 11:13 AM CDT) Anatomical Region Laterality Modality Other Narrative Procedure Note Julissa Dior MD - 05/18/2024 11:13 AM CDT [facility] Patient Name: Winsome Kc Procedure Date: 05/18/2024 11:13 AM Date of : 1955 Admit Type: Outpatient Age: 68 Gender: Female Attending MD: Julissa Dior M.D. Room: [facility] ENDOSCOPY ROOM 1 Note Status: Finalized [...] scope was passed under direct vision. TheColonoscope [id number] was introduced through the anus and advanced [...] perforation orabscess without bleeding CPT copyright 2020 [employer]. All rights reserved. The codes documented in this report are preliminary and upon alternative education teacher reviewmay be revised to meet current compliance requirements. Recognized by the [employer] Gastro[employer]oscopy for promoting quality [...] mammography. COMPARISON: 10/01/2022, 08/18/2021, 07/02/2020 - [facility]. 04/05/2019, 02/03/2018 - [facility]. TECHNIQUE: CC and MLO views of the [...] Hep C Ab NON-REACTI VE NON-REACTI VE [facility] [place] SIGNAL TO CUT-OFF 0.02 <1.00 [facility] [place] 06/30/2018 1:03 PM CDT 06/30/2018 1:05 PM CDT Narrative Resulting Agency Comment Performing Organization Information: Site ID: [id number] Name: [facility] Address: [address] [place] [address] Director: Colt Burnett D.O., MPH Marquita Daniel MD LAB MICROBIOLOGY - GENERAL O RDERABLES Final Result [facility] [place] Garnica * Dexa Axial Skeleton Bone Density 1 or 2 Site (06/18/2015 1:00 PM CDT) Anatomical Region Laterality Modality Body N/A Radiographic Bere ging 06/18/2015 1:00 PM CDT Narrative 06/18/2015 5:59 PM CDT DEXA Bone Density Axial Acc#: [id number] DATE OF EXAM: Jun 18 2015 CLINICAL [...] Fax: -- Attending Fax: -- Attending ID: [id number] Requesting ID: [id number] Report To 1 ID: [id number] Report To 1 Name: DONALD GARNICA Report To 1 FAX: -- NextGen Order #: Procedure Note Provider, MD Chica - 03/28/2017 DEXA Bone Density Axial Acc#: [id number] DATE OF EXAM: Jun 18 2015 CLINICAL [...] Fax: -- Attending Fax: -- Attending ID: [id number] Requesting ID: [id number] Report To 1 ID: [id number] Report To 1 Name: DONALD GARNICA Report To 1 FAX: -- NextGen Order #: us Historical Provider MD ZEE DXA PROCEDURES Final Result from Last 3 Months or Most Recently Relevant to Health Maintenance Insurance [id number] (Work) [address] [address] [facility] MEDICARE [facility] MEDICARE Advance Directives For more information, please contact: [phone] * Full Code (Latest Code Status on File) Date Activated Date Inactivated Comments 05/18/2024 10:55 AM 05/18/2024 5:25 PM * Full Code Date Activated Date Inactivated Comments 05/18/2024 10:55 AM 05/18/2024 10:55 AM Care Teams Marketing Secretary Relationship Specialty Start Date End Date Bib Summers MD [address] [place] [address] PCP - General 02/26/17 Donald Garnica MD [address] [place] [address] [address] [place] [address] Fire Coordinator Obstetrics and Gynecology 02/24/18 Victor M Castillo DO [address] [place] [address] [address] [place] [address] Consulting Physician Gastroenterology 02/24/18 Marquita Daniel MD [address] [place] [address] [address] [place] [address] Referring Physician Rheumatology 02/24/18 Jenna Barrera MD [address] [facility] [address] [place] [address] Consulting Physician Critical Care Med 02/25/21
--- OUTSIDE RECORDS SUMMARY | 2025-06-26 02:05 | XMS_ITS | Clinical Summary ---
Author Organization [facility] Address [address] [place] [address] Care Team Providers Care Human Resources Vice President Name Role Phone Unavailable Primary Care Provider Unavailabl e Source Comments [facility],non-owned Affiliates and Associated Physician Practices is amultiple site organization consisting of ambulatory clinics and hospital sitesin [place], [place], [place] and [place]. This disclosure is being madepursuant to the Care Everywhere program and may not contain all information available regarding this patient. 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
--- OUTSIDE RECORDS SUMMARY | 2025-06-26 02:05 | XMS_ITS | Clinical Summary ---
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
--- OUTSIDE RECORDS SUMMARY | 2025-06-26 02:05 | XMS_ITS | Encounter Summary ---
Author Organization [facility] Address [address] [place] [address] Phone Care Team Providers Care Instructional Materials Director Name Role Phone Bib Summers MD Primary Care Provider [phone] Donald Garnica MD Unavailable [phone] Victor M Castillo DO Unavailable [phone] Marquita Daniel MD Unavailable [phone] Annabella Ray MD Unavailable [phone] Jenna Barrera MD Unavailable [phone] Encounter Details Date Type Department Care Team (Late st Contact Info) Description 11/19/2017 Orders Only [facility] [address] [place] [address] Bib Summers MD [address] [place] [id number] Social History Tobacco Use Types Packs/Day Years Used Date Smoking Tobacco: Never Smokeless Tobacco: Never Alcohol Use Standard Drinks/Week Comments Yes 0 (1 standard drink = 0.6 oz pur e alcohol) Comments Unknown Sex and Gender Information Value Date Recorded Sex Assigned at Not on file 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 Gender Identity Not on file Sexual Orientation Not on file documented as of this encounter Plan of Treatment Not on file documented as of this encounter Procedures Procedure Name Priority Date/Time Associated Diagnosis Comments SCAN - LABS 11/19/2017 2:04 PM SEEING EYE DOG TEACHER documented in this encounter Results * SCAN - LABS (11/19/2017 2:04 PM SEEING EYE DOG TEACHER) us Bib Summers MD Final Resu lt documented in this encounter Visit Diagnoses Not on filedocumented in this encounter Additional Health Concerns Infection Onset Date Last Indicated Resolved Time COVID: Suspected 07/09/2022 07/09/2022 07/09/2022 1:33 PM CDT documented as of this encounter Care Teams Instructional Materials Director Relationship Specialty Start Date End Date Bib Summers MD [address] [place] [address] PCP - General 02/26/17 Donald Garnica MD [address] [facility] [address] [place] [address] Butter Printer Obstetrics and Gynecology 02/24/18 Victor M Castillo DO [address] [place] [address] [address] [place] [address] Consulting Physician Gastroenterology 02/24/18 Marquita Daniel MD [address] [place] [address] [address] [place] [address] Referring Physician Rheumatology 02/24/18 Annabella Ray MD [address] [place] [address] Referring Physician Pulmonary Disease 09/15/18 02/24/21 Jenna Barrera MD [address] [place] [address] Consulting Physician Critical Care Med 02/25/21 documented as of this encounter
--- OUTSIDE RECORDS SUMMARY | 2025-06-26 02:05 | XMS_ITS | Referral Summary ---
Author Organization [facility] Address [address] [place] [address] Care Team Providers Care Deputy Brand Inspector Name Role Phone Bib Summers MD Primary Care Provider [phone] Donald Garnica MD Unavailable [phone] Victor M Castillo DO Unavailable [phone] Marquita Daniel MD Unavailable [phone] Jenna Barrera MD Unavailable [phone] Encounters Date Type Department Care Team Description 05/25/2025 Telephone [facility] Pulmonary at [address] [place] [address] Jackelyn Jacome LPN Anesthesia at [place] request OV note 05/09/2025 11:30 AM CDT Office Visit [facility] Rheumatology [address] [place] [address] Office [address] [place] [address] Hilary Mena NP Seronegative rheumatoid arthritis (HCC) (Primary Dx); High risk medication use; Generalized osteoarthritis; Pulmonary nodule 05/09/2025 11:00 AM CDT Infusion [facility] Infusion Therapy [address] [place] [address] [address] [place] [address] Seronegative rheumatoid arthritis (HCC) (Primary Dx) 04/05/2025 Orders Only [facility] Health Information Management [address] [place] [address] Scanning, Provider 04/02/2025 11:00 AM CDT Office Visit [facility] [address] [place] [address] Bib Summers MD Pure hypercholesterolemia (Primary Dx); MUNGUIA (dyspnea on exertion); Seronegative rheumatoid arthritis (HCC) 03/29/2025 Telephone [facility] Pulmonary at [place] [address] [facility] [address] [place] [address] Jackelyn Jacome LPN from Last 3 Months Allergies Active Allergy Reactions Criticality Noted Date Comments Lisinopril Cough Low 06/19/2019 Sulfa (Sulfonamide Antibiotics) Rash Medium 05/30 Sulfasalazine Rash Medium 06/21/2018 Medications calcium carbonate (CALCIUM 600) 1,500 mg (600 mg of elemental calcium) tablet ONE DAILY 0 10/27/2011 Act maria elena multivit-mineral -iron-lutein (CENTRUM SILVER ULTRA WOMEN'S) tablet ONE DAILY 0 10/27/2011 Active blnxiksalys-H3-P oswellia serr (OSTEO BI-FLEX, 5-LOXIN,) 1,500-400-100 mg-unit-mg [...] for abnormal ct [facility] the [facility] at [facility] Also I referred her to dr rodríguez [...] arrange for her to have infusions in [place] and right orders if we are not [...] therapy. 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 Maximino SS et al. TINO. 2013;310(19): 8328-5291 (http://education.NoiseFree/faq/GUV247) Chol/HDL ratio 3.0 <5.0 (calc) [facility] [...] LAB BLOOD ORDERABLES Final Result [facility] [address] [facility] [place] [address] * Colonoscopy (05/18/2024 11:13 AM CDT) Anatomical Region Laterality Modality Other Narrative Procedure Note Julissa Dior MD - 05/18/2024 11:13 AM CDT [facility] Patient Name: Winsome Kc Procedure Date: 05/18/2024 11:13 AM Date of : 1955 Admit Type: Outpatient Age: 68 Gender: Female Attending MD: Julissa Dior M.D. Room: [facility] ENDOSCOPY ROOM 1 Note Status: Finalized Patient [...] scope was passed under direct vision. TheColonoscope [id number] was introduced through the anus and advanced [...] perforation orabscess without bleeding CPT copyright 2020 [employer]. All rights reserved. The codes documented in this report are preliminary and upon residential carpenter reviewmay be revised to meet current compliance requirements. Recognized by the [employer] for Gastrointestinal Endoscopy for promoting quality [...] screening mammography. COMPARISON: 10/01/2022, 08/18/2021, 07/02/2020 - [facility]. 04/05/2019, 02/03/2018 - [facility]. TECHNIQUE: CC and MLO views of [...] Hep C Ab NON-REACTI VE NON-REACTI VE [facility] [place] SIGNAL TO CUT-OFF 0.02 <1.00 [facility] [place] 06/30/2018 1:03 PM CDT 06/30/2018 1:05 PM CDT Narrative Resulting Agency Comment Performing Organization Information: Site ID: [id number] Name: Antonella Garrett Address: [facility] [place] [address] Director: Colt Burnett D.O., MPH us Marquita Daniel MD LAB MICROBIOLOGY - GENERAL O RDERABLES Final Result [facility] [place] * Dexa Axial Skeleton Bone Density 1 or 2 Site (06/18/2015 1:00 PM CDT) Anatomical Region Laterality Modality Body N/A Radiographic Bere ging 06/18/2015 1:00 PM CDT Narrative 06/18/2015 5:59 PM CDT vm DEXA Bone Density Axial Acc#: [id number] DATE OF EXAM: Jun 18 2015 CLINICAL [...] Fax: -- Attending Fax: -- Attending ID: [id number] Requesting ID: [id number] Report To 1 ID: [id number] Report To 1 Name: DONALD GARNICA Report To 1 FAX: -- NextGen Order #: Procedure Note Provider, MD Chica - 03/28/2017 DEXA Bone Density Axial Acc#: [id number] DATE OF EXAM: Jun 18 2015 CLINICAL [...] Fax: -- Attending Fax: -- Attending ID: [id number] Requesting ID: [id number] Report To 1 ID: [id number] Report To 1 Name: DONALD GARNICA Report To 1 FAX: -- NextGen Order #: Historical Provider MD ZEE DXA PROCEDURES Final Result from Last 3 Months or Most Recently Relevant to Health Maintenance Insurance [phone] (Work) [address] [address] [place] [employer] [place] [employer] [place] [place] [employer] [place] [employer] [place] MEDIC[employer] Advance Directives For more information, please contact: [phone] * Full Code (Latest Code Status on File) Date Activated Date Inactivated Comments 05/18/2024 10:55 AM 05/18/2024 5:25 PM * Full Code Date Activated Date Inactivated Comments 05/18/2024 10:55 AM 05/18/2024 10:55 AM Care Teams Deputy Brand Inspector Relationship Specialty Start Date End Date Bib Summers MD [address] [place] [address] PCP - General 02/26/17 Donald Garnica MD [address] [place] [address] [address] [place] [address] Associate Director Of Biostatistics Obstetrics and Gynecology 02/24/18 Victor M Castillo DO [address] [place] [address] [address] [place] [address] Consulting Physician Gastroenterology 02/24/18 Marquita Daniel MD [address] [place] [address] [address] [place] [address] Referring Physician Rheumatology 02/24/18 Jenna Barrera MD [address] [facility] [address] [place] [address] Consulting Physician Critical Care Med 02/25/21
--- OUTSIDE RECORDS SUMMARY | 2025-06-26 02:05 | XMS_ITS | Encounter Summary ---
Author Organization [facility] Address [address] [place] [address] Phone Care Team Providers Care Airplane Technician Name Role Phone Bib Summers MD Primary Care Provider [phone] Donald Garnica MD Unavailable [phone] Victor M Castillo DO Unavailable [phone] Marquita Daniel MD Unavailable [phone] Annabella Ray MD Unavailable [phone] Jenna Barrera MD Unavailable [phone] Encounter Details Date Type Department Care Team (Late st Contact Info) Description 08/27/2017 Orders Only [facility] [address] [place] [address] Bib Summers MD [address] [id number] Social History Tobacco Use Types Packs/Day Years Used Date Smoking Tobacco: Never Smokeless Tobacco: Never Alcohol Use Standard Drinks/Week Comments Yes 0 (1 standard drink = 0.6 oz pur e alcohol) Comments Unknown Sex and Gender Information Value Date Recorded Sex Assigned at Not on file 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 Gender Identity Not on file Sexual Orientation [...] documented as of this encounter Care Teams Airplane Technician Relationship Specialty Start Date End Date Bib Summers MD [address] [place] [address] PCP - General 02/26/17 Donald Garnica MD [address] [facility] [address] [place] [address] Tent Finisher Obstetrics and Gynecology 02/24/18 Victor M Castillo DO [address] [facility] [address] [place] [address] Consulting Physician Gastroenterology 02/24/18 Marquita Daniel MD [address] [facility] [address] [place] [address] Referring Physician Rheumatology 02/24/18 Annabella Ray MD [address] [facility] [address] [place], [place] [id number] Referring Physician Pulmonary Disease 09/15/18 02/24/21 Jenna Barrera MD [address] [facility] [address] [place], [place] [id number] Consulting Physician Critical Care Med 02/25/21 documented as of this encounter
--- OUTSIDE RECORDS SUMMARY | 2025-06-26 02:05 | XMS_ITS | Continuity of Care Document ---
Author Organization [facility] Address [address] 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, [facility] [address], [place], [place], [id number], [place]. tel:[phone] Marquita Daniel MD.Referring Provider: Bib Summers MD, [address], [place], [place], [facility]. tel:[phone] [facility], [address] [place] [address] [address], [place], [place], [id number], tel:[phone] SEC [facility] LOWE Professional Complete Exam (chief complaint) Age-related nuclear cataract, bilateralHigh risk medication useDrusen (degenerative ) of macula, left eye 2 [address], [address], [place], [place], [address], [place]. tel:[phone] Marquita Daniel MD.Referring Provider: Bib Summers MD, [address], [place], [address]. tel:[phone] Office/outpa tient Visit, Est [facility], [address] [place] [address] [address], [place], [place], [address], [place] tel:[phone] SEC [facility] Luis [place] Professional 1.5 wk Shingles f/u (chief complaint) Herpes zoster without complication Jul-0 1 [address], [place], [place], [address], [place]. tel:[phone] Marquita Daniel MD.Referring Provider: Bib Summers MD, [address], [place], [address]. tel:[phone] Office/outpa tient Visit, Est [facility], [address], [place], [place], [address], [place] tel:[phone] SEC [facility] LOWE Professional WIE (chief complaint) Herpes zoster without complication 1 [address] [facility], [address], [place], [place], [address], [place]. tel:[phone] Marquita Daniel MD.Referring Provider: Bib Summers MD, [address], [place], [address]. tel:[phone] [facility], [address], [place], [place], [address], [place] tel:[phone] SEC [facility] LOWE Professional Complete Exam (chief complaint) Age-related nuclear cataract, bilateralDry eye syndrome of right lacrimal glandHigh risk medication use 1 [address] [facility], [address], [place], [place], [address], [place]. tel:[phone] Marquita Daniel MD.Other Provider: Marquita Daniel MD, [address] [facility] 5th [address], [place], [address]. tel:[phone] ng Provider: Bib Summers MD, [address], [place], [address]. tel:[phone] [facility], [address], [place], [place], [address], [place] tel:[phone] SEC Pedro Luis LOWE Professional No Information [address] [facility], [address], [place], [place], [address], [place]. tel:[phone] Specialist: Marquita Daniel MD, [address], [place], [address]. tel:[phone] Family History Family Member Type Diagnosis Age At Onset Problem Family history of Diabetes onelia day Payers Payer name Insurance type Covered constitution party ID Authormonico sears(s) Medicare CHRISSY TOMÁS [id number] [facility] [id number] Social History Type Description Quantity Date Captured [...]
--- OUTSIDE RECORDS SUMMARY | 2025-06-26 02:05 | XMS_ITS | Encounter Summary ---
Author Organization [facility] Address [address] [facility] [place] [address] Phone Care Team Providers Care Prime Broker Name Role Phone Bib Summers MD Primary Care Provider [phone] Calixto Alvarez MD Unavailable [phone] Encounter Details Date Type Department Care Team (Late st Contact Info) Description 04/21/2024 Telephone [facility] Oncology Services [address] [place] [id number] Calixto Alvarez MD [address] [place] [address] Social History Tobacco Use Types [...] Industry Job Start Date Job End Date [employer] [facility] Not on file Not on file Not on file documented as of this encounter Miscellaneous Notes * Telephone Encounter - Calixto Alvarez MD - 04/21/2024 2:49 PM CDT Called patient back and answered her questions about biopsy. This nodule is quite peripheral and not accessible via bronchoscopy. [facility] does not have navigational bronchoscopy. Have discussed with IR,this nodule is accessible via CT-guided biopsy. Patient requested this to be done at [facility]. Contacted patient's primary care physician Dr. Summers to request him to order the biopsy of the lung at [facility]. * Telephone Encounter - Jeana Emery [...] the most effective steps in her care. [phone]. documented in this encounter Plan of Treatment Not on file documented as of this encounter Visit Diagnoses Not on filedocumented in this encounter Care Teams Prime Broker Relationship Specialty Start Date End Date Bib Summers MD [address] [address] PCP - General Internal Medicine 03/16/18 Calixto Alvarez MD [address] [place] [address] Consulting Physician Medical Oncology 04/19/24 documented as of this encounter
--- NOTE | 2025-06-26 07:18 | WPDHPUPDATE1 ---
History and Physical Update Update Date/Time: 06/26/25 07:18 History and Physical has been reviewed, including an updated exam of the patient. There are NO changes in the patient's condition. Risks, benefits, and alternatives have been discussed and questions answered. Patient agrees to proceed with procedure.
[2025-06-26] MEDS: ACETAMINOPHEN 500 MG TABLET 1000 MG PO (08:30)
[2025-06-26] MEDS: LACTATED RINGERS 1,000 ML 30 ML IV CONT ×2 (08:30→11:58)
[2025-06-26] MEDS: TRANEXAMIC ACID 1,000MG/ISO100 1,000 MG/100 ML BAG 200 MG IVPB (09:30)
--- NOTE | 2025-06-26 09:38 | P.PNAN_ITS ---
Anes - Initial Pre Proc Eval Procedure: Operation Date: 06/26/25 10:00 Proposed Procedures p Right Custom Total Knee Arthroplasty - Santosh Agosto MD Date/Time: 06/26/25 09:38 Surgeon: Santosh Agosto MD Pre Op Diagnosis: OA Rt Knee Patient Data Age: 69 Gender: F Height: 1.64 m Weight: 90.4 kg Last Vital Signs Temp 37.2 C 05/28/25 10:14 Pulse 72 05/28/25 10:14 Resp 16 05/28/25 10:14 BP 112/88 05/28/25 10:14 Pulse Ox 99 05/28/25 10:14 O2 Del Method Room Air 05/28/25 10:14 Allergies Allergy/AdvReac Type Severity Reaction Status Date / Time Sulfa (Sulfonamide Allergy Unknown Unknown Verified 06/25/25 10:28 Antibiotics) Home Medications ?Medication ?Instructions ?Recorded ?Confirmed ?Type calcium carbonate (Calcium 600) 600 mg PO DAILY 02/15/20 06/25/25 History meloxicam 7.5 mg tablet 7.5 mg PO DAILY 02/15/20 06/25/25 History multivitamin (Multiple Vitamins 1 tablet PO DAILY 02/15/20 06/25/25 History tablet) glucosamine-chondroitin 250 mg-200 2 tablet PO ONCE 06/24/20 06/25/25 History mg tablet (Osteo Bi-Flex) furosemide 20 mg tablet 20 mg PO QAM 09/03/20 06/25/25 History esomeprazole magnesium 20 mg 20 mg PO DAILY 03/27/24 06/25/25 History capsule,delayed release (Nexium) golimumab 12.5 mg/mL intravenous 12.5 mg IV .8 weeks 09/08/24 06/25/25 History solution (Simponi ARIA) acetaminophen 500 mg tablet 1,000 mg PO Q4-6H PRN pain 05/28/25 06/25/25 History ibuprofen 800 mg tablet 800 mg PO Q8H 05/28/25 06/25/25 History losartan 50 mg tablet 50 mg PO DAILY 05/28/25 06/25/25 History potassium chloride 10 mEq 10 meq PO DAILY 05/28/25 06/25/25 History tablet,extended release Laboratory Tests 06/26/25 08:31 Blood Type Pending Antibody Screen Pending Patient hx anesthesia problems: none Family hx anesthesia problems: none Results Review: All pre-operative results and documents have been reviewed as part of the pre- operative evaluation. [facility] Past Medical History Medical History Hypertension Rheumatoid arthritis History of stress test History of postoperative nausea and vomiting Peripheral edema Sleep apnea Surgical History Surgical History History of total left knee replacement History of appendectomy FH: total abdominal hysterectomy and bilateral salpingo-oophorectomy Colonoscopy planned Family History Family History Father Diabetes mellitus Family history of congestive heart failure Family history of congenital heart disease Family history of dementia Sibling Diabetes mellitus Patient's sister is in good health Family history of cardiovascular disease Family history of congenital heart disease Family history of seizure disorder Mother Family history of cardiovascular disease, Onset Age: 64 Family history of congenital heart disease Social History Social History Smoking status: Never smoker Alcohol intake: current Substance use: never Substance use type: does not use Do You Feel Safe in your Home?: Yes Lack of Transportation: No Lack of Food: Never True Current Housing: I Have Housing Concerned About Future Housing: No Difficulty Paying Gas/Electric Bills: No Difficulty Paying for Meds: No Currently Unemployed: No Education: Trade/Vocational Certificate Difficulty w/ Childcare or Family Care: No Living arrangements: with family Additional living arrangements comments: Spiritual care concerns: No Anes - Eval Final PreProcedure Day of Procedure 06/26/25 09:38 Patient weight: obese Heart: regular rate and rhythm Lungs: clear to auscultation Airway: Mallampati scale class II Neurological: alert and oriented Last oral intake: >/= 8 hours ASA classification: III Emergent: no Anesthetic plan: proceed Anesthesia type and monitoring: general LMA and standard monitoring Results Review: All pre-operative results and documents have been reviewed as part of the pre- operative evaluation. Informed Consent: The patient's anesthetic plan and its attendant risks and benefits were discussed with the patient/family/POA. Questions were solicited and answers provided to the satisfaction of the patient/family/POA.
[2025-06-26] MEDS: ceFAZolin 2 GM in SODIUM CHLORIDE 0.9% IV 50 ML 100 ML IVPB (09:53)
[2025-06-26] MEDS: SODIUM CHLORIDE 0.9% IV 37.7 ML, MORPHINE SULFATE INJ (*CRX) 2 MG, ROPivacaine HCL 1% 2... INFILTRATE (10:30)
[2025-06-26] MEDS: GENTAMICIN BONE CEMENT REFOBACIN 1 EACH TOPICAL (10:57)
--- NOTE | 2025-06-26 11:24 | SUR.OPER ---
[address]
--- NOTE | 2025-06-26 11:42 | W.PM.PROC2 ---
Procedure Note - Detailed Date of Procedure 06/26/25 Pre-op Diagnosis Right knee degenerative arthritis. Post-op Diagnosis Same Procedure Performed Custom total knee arthroplasty, right. Surgeon Santosh Agosto MD Anesthesia General Findings Varus deformity with pseudolaxity. No ligament releases required. Description of Procedure Preoperative antibiotics were given. The limb was prepped and draped in the usual sterile fashion with a well-padded tourniquet high on the thigh. The limb was exsanguinated and the tourniquet inflated to 300 mmHg. A longitudinal incision was created just medial to the patella. A trivector approach to the knee was performed. Arthrotomy was taken down through the joint capsule. No significant releases were initially taken. The femur was exposed and the F1 jig was applied. The coring tool was used to remove the cartilage for the F2 jig to sit flush with the bone. The jig was pinned and the distal cut carefully taken. Caliper measurements confirmed appropriate bony resections according to the preoperative templated plan. The F4 cutting jig for the femur was applied, at the standard rotation. The AP and anterior chamfer cuts were taken. The F5 jig was applied and the posterior chamfer cuts were taken. The tibia was prepared using the T1 jig, after removing cartilage for the jig contact points. Proper alignment was checked with the alignment genesis. The tibia was cut using the T1u guide. Gap balancing was performed. Gap measurements were taken and the knee was trialed. Excellent alignment and soft tissue balancing was confirmed. The posterior cruciate ligament was recessed along the proximal tibia. The patella was cut for resurfacing. Three lug holes were drilled. Meniscal remnants were removed. The trial components were assembled. Excellent range of motion and proper soft tissue balancing were confirmed throughout the full range of motion. Patellar tracking was excellent. The knee was copiously irrigated periodically throughout the procedure. The real implants were cemented into position. Excess cement was carefully removed. The wound was closed in layers with interrupted #1 Vicryl suture, 2-0 strata fix suture, 0 strata fix suture, 2-0 strata fix suture. Steri-Strips placed on the skin with the knee flexed. Sterile bulky dressing applied. The patient was brought to the recovery room in stable condition. There were no complications. Implants Conformis Custom total knee arthroplasty. Cemented. Cruciate retaining. 6B insert. 35 mm oval patella. Estimated Blood Loss 250 Drains No Complications No immediate complications Condition Stable Disposition PACU [facility] Billing Surgery - Charge Forward: Surgery Billing
[2025-06-26] MEDS: fentaNYL CITRATE INJ (*CRX) 100 MCG/2 ML VIAL 25 MCG IV PUSH ×4 (12:12→12:46)
--- NOTE | 2025-06-26 13:15 | PC.NURSE ---
This patient, Winsome Kc, was admitted to [facility] Surg Room 331-02. Patient/family oriented to hospital policies and general routines including ID bracelet, bed and alarms, visiting hours, pain management, procedures, bathroom and other care routines, personal items, smoking policy, room service/diet, and visiting hours. Information on how to activate the Rapid Response Team has been discussed. Patient/Family are encouraged to report perceived risks to care and to ask questions if they do not understand what they are told or what they should do.
[2025-06-26] MEDS: ONDANSETRON INJ 4 MG/2 ML VIAL IV PUSH (13:27)
[2025-06-26] MEDS: SODIUM CHLORIDE 0.9% IV 1,000 ML 125 ML IV CONT (13:32)
[2025-06-26] MEDS: PROMETHAZINE HCL 25 MG/ML AMPUL 12.5 MG IV PUSH (16:05)
[2025-06-26] MEDS: ASPIRIN 81 MG ENTERIC TABLET PO (17:38)
[2025-06-26] MEDS: ceFAZolin 2 GM/D5W 50 ML 2 GM/50 ML BAG IVPB (17:42)
[2025-06-26] MEDS: oxyCODONE/ACETAMINOPHEN (*CRX) 10-325 MG TABLET 1 TAB PO (18:21)
[2025-06-27] MEDS: ceFAZolin 2 GM/D5W 50 ML 2 GM/50 ML BAG IVPB ×2 (01:06→09:50)
[2025-06-27] MEDS: oxyCODONE/ACETAMINOPHEN (*CRX) 10-325 MG TABLET 1 TAB PO (01:07)
[2025-06-27 02:49] VITALS: BP 127/58; PULSE 75; RESP 13; TEMP 36.7; O2SAT 93
[2025-06-27] MEDS: oxyCODONE/ACETAMINOPHEN (*CRX) 5-325 MG TABLET 1 TABLET PO (05:28)
[2025-06-27 05:38] VITALS: BP 135/67; PULSE 75; RESP 16; TEMP 36.8; O2SAT 94
[2025-06-27] MEDS: HYDROmorphone HCL INJ (*CRX) 2 MG/ML VIAL 1 MG IV PUSH (06:56)
[2025-06-27 07:12] LABS: Hematocrit 35.5 % (37.0-47.0); Hemoglobin 11.8 g/dL (12.0-15.0); Immature Granulocyte Percent A 0.2 % (0-0.5); Lymphocytes Absolute Auto 2.27 K/mm3 (0.9-3.2); Mean Corpuscular HGB Conc 33.2 g/dl (32-36); Mean Corpuscular Hemoglobin 33.4 pg (26-34); Mean Corpuscular Volume 100.6 fl (80-100); Nucleated Red Blood Cells Absolute Auto 0.000 K/mm3 (0.0-0.012); Nucleated Red Blood Cells Perc 0.0 % (0.0-0.2); Platelet Count Result 189 k/mm3 (150-375); Red Blood Count 3.53 M/mm3 (4.2-5.4); White Blood Count 8.7 K/mm3 (4.5-10.0)
[2025-06-27 07:28] LABS: Anion Gap 2 mmol/L (4-12); Blood Urea Nitrogen 12 mg/dL (7-17); Calcium 8.6 mg/dL (8.4-10.2); Carbon Dioxide 28 mmol/L (22-30); Chloride 102 mmol/L (98-107); Estimated CRCL calculation 60 ml/min; Estimated Glomerular Filt Rate > 60; Glucose 110 mg/dL (65-110); Potassium 3.6 mmol/L (3.4-5.0); Sodium 132 mmol/L (137-145)
[2025-06-27] MEDS: ONDANSETRON INJ 4 MG/2 ML VIAL IV PUSH (09:50)
[2025-06-27] MEDS: LOSARTAN POTASSIUM 50 MG TABLET PO (10:17)
[2025-06-27 11:43] VITALS: BP 148/75; PULSE 91; RESP 18; TEMP 38; O2SAT 100
[2025-06-27 12:05] VITALS: TEMP 38
[2025-06-27] MEDS: ACETAMINOPHEN 500 MG TABLET PO (12:05)
[2025-06-27 13:05] VITALS: TEMP 37.1
[2025-06-27 13:07] VITALS: TEMP 37.1
[2025-06-27] MEDS: FUROSEMIDE 20 MG TABLET PO (13:30)
[2025-06-27] MEDS: ASPIRIN 81 MG ENTERIC TABLET PO (13:30)
[2025-06-27] MEDS: MELOXICAM 7.5 MG TABLET PO (13:30)
[2025-06-27] MEDS: PANTOPRAZOLE 40 MG TABLET PO (13:31)
[2025-06-27] MEDS: POTASSIUM CHLORIDE 10 MEQ ER TABLET PO (13:31)
--- NOTE | 2025-06-27 17:02 | PC.NURSE ---
On 06/27/25, the LUMP MAKER, Roselia Campa, provided care and completed [employer] documentation on this patient. I have reviewed the LUMP MAKER's documentation and agree with the findings.
== END 2025-06-27 16:05 | disposition home or self-care (01) ==
LOC: ANHSURGERY 11:50 → ANH3MEDSUR 13:12
PROVIDERS: PCP Internal Medicine Infectious Disease; Visit Provider Orthopaedic Surgery
PROC: (CPT 27447; principal; 2025-06-26 10:00)
DX: M17.11 Unilateral primary osteoarthritis, right knee (principal); M21.161 Varus deformity, not elsewhere classified, right knee; I10 Essential (primary) hypertension; M06.9 Rheumatoid arthritis, unspecified; G47.30 Sleep apnea, unspecified; E66.9 Obesity, unspecified; Z68.33 Body mass index [BMI] 33.0-33.9, adult; Z79.620 Long term (current) use of immunosuppressive biologic; Z79.1 Long term (current) use of non-steroidal anti-inflammatories (NSAID); Z79.899 Other long term (current) drug therapy; Z98.890 Other specified postprocedural states; Z82.49 Family history of ischemic heart disease and other diseases of the circulatory system
CPT/HCPCS: 27447; 36415; 73560; 80048; 85025; 86850; 86860; 86870; 86880; 86900; 86901; 86902; 86971; 97110; 97116; 97161; 97165; 97530; 97535; J0690; A9270; C1713; C1776; J0166; J1171; J1885; J2003; J2250; J2270; J2405; J2550; J2704; J2795; J3010; J7030; J7120; J7512